=== PATIENT | female | born 1965 | race Caucasian/White ===

== ENCOUNTER 2016-09-25 13:56 | Emergency (ER) | payer OTHER ==
[~2016-09-25] VITALS: Ht 172.7 cm; Wt 63.5 kg
[~2016-09-25 13:56] MED LIST: ALBU1AER INH; FLAG500T PO; MULT-65 PO
[2016-09-25 13:58] VITALS: BP 123/74; PULSE 109; RESP 14; TEMP 98.4; O2SAT 98
[2016-09-25] MEDS ORDERED: TETANUS/DIPHTHERIA TOXOID ADULT 0.5 ML VIAL IM ONE (15:00)
--- NOTE | 2016-09-25 15:00 | PD ---
HPI Chief Complaint: Injury Time Seen by Provider: 14:58 Travel History International Travel<30 days: No Contact w/Intl Traveler<30days: No Traveled to known affect area: No History of Present Illness HPI Patient comes in complaining of right knee pain that began yesterday after she tripped over a cord and fell going straight on her right knee causing abrasion and pain on an outdoor porch. Patient reports her tetanus shot is not up-to- date. Patient denies anything for this. States pain is worse with flexion and walking. Denies any numbness or tingling. Denies hitting her head or loss of consciousness. PFSH Past Medical History Asthma: Yes Diabetes: No GERD: Yes Immune Disorder: No Respiratory: Yes (ASTHMA) Ulcer: Yes ?: Not Menopausal: Yes Social History Alcohol Use: Yes Tobacco Use: Yes Substance Use: No Allergies-Medications (Allergen,Severity, Reaction): Coded Allergies: Codeine (Verified Allergy, Intermediate, Itching, 09/25/16) *MDRO Multi-Drug Resistant Organism (Verified Adverse Reaction, Unknown, ) 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 Morphine (Verified Adverse Reaction, Unknown, ITCHING, 09/25/16) Reported Meds & Prescriptions Reported Meds & Active Scripts Active Naprosyn (Naproxen) 500 Mg Tab 500 Mg PO Q12HR PRN Review of Systems Except as stated in HPI: all other systems reviewed are Neg Physical Exam Narrative GENERAL: Well-developed, well nourished, in no acute distress, and non-ill appearing. SKIN: Warm and dry. HEAD: Atraumatic. Normocephalic. EYES: Pupils equal and round. EOMI. No scleral icterus. No injection or drainage. ENT: No nasal bleeding or discharge. Mucous membranes pink and moist. NECK: Trachea midline. Supple. No nuclear rigidity. CARDIOVASCULAR: Dorsal pulses 2+ intact bilaterally. Capillary refill less than 2 seconds. RESPIRATORY: No accessory muscle use. No respiratory distress. MUSCULOSKELETAL: No obvious deformities. No clubbing. No cyanosis. Soft tissue swelling versus small effusion noted anterior aspect right knee. Full range of motion. Knee: Negative patellar apprehension, varus and valgus maneuvers, anterior draw test, and Clarissa test. Pulses equal BL distal to injury. Capillary refill less than 2 seconds distal to injury and equal BL. FROM distal to injury and equal BL. Strength distal to injury equal BL. NV intact distal to injury. Dorsal pulses equal BL. Patient reports tenderness to palpation over anterior aspect right knee. NEUROLOGICAL: Awake and alert. No obvious cranial nerve deficits. Motor grossly within normal limits. Normal speech. PSYCHIATRIC: Appropriate mood and affect; insight and judgment normal. Data Data Last Documented VS Vital Signs Date Time Temp Pulse Resp B/P Pulse Ox O2 Delivery O2 Flow Rate FiO2 09/25/16 13:58 98.4 109 14 123/74 98 Room Air Orders Knee, Complete (4vws) (09/25/16 ) Wound Care (09/25/16 14:57) Tetanus/Diphtheria Tox Adult (Tetanus/Di (09/25/16 15:00) Ice/Cold Pack (09/25/16 14:57) Splint Or Brace Apply/Monitor (09/25/16 15:32) [facility] Medical Decision Making Medical Screen Exam Complete: Yes Emergency Medical Condition: Yes Differential Diagnosis Fracture, sprain, contusion, abrasion, laceration or other Narrative Course The patient appears to have suffered a contusion of the extremity. There is no clinical evidence to suspect bony injury by exam. Radiographic examination revealed no fracture seen at this time. The patient has full range of motion on passive motions. There is no significant edema. There is no proximal or distal joint effusion. The distal extremity appears neurovascularly intact, without evidence of neurovascular injury nor compartment syndrome. Tendon exam also was intact. The effected knee was immobilized. The patient was discharged on pain medication instructions and given warnings for vascular compromise. The patient is to follow up with their regular physician. The patient agrees with plan. The patient suffered abrasion. The abrasions are very superficial and non- repairable. There was no evidence to suggest foreign bodies. Visual and tactile exams were unremarkable. There was no evidence of neurovascular injury as well. The patients wound were cleaned and dressed. The patient was given signs and symptom warnings for infection, such as increasing pain, redness, swelling, associated heat, pus or fever. The patient was given instructions for timely follow up. The patient agreed with plan of care. Patient in no obvious distress upon re-evaluation. All pertinent Radiology result(s) discussed with patient. Patient was asked if they wanted to speak to my attending, which the patient did not wish to do at this time. Any questions/ concerns in reference to patient diagnosis/condition discussed and clarified prior to patient's discharge. Reinforced sheer importance of close follow up with patient's primary physician or primary care clinic. Instructed patient to return to ED immediately, if symptoms return/worsen. Pt showed understanding of above instructions. Further instructions and recommendations were detailed in discharge paperwork. Pt ambulated without difficulty out of ED at discharge. Diagnosis Primary Impression: Contusion of right knee Qualified Code: S80.01XA - Contusion of right knee, initial encounter Additional Impression: Abrasion Patient Instructions: Abrasion (ED), Contusion in Adults (ED), General Instructions Additional Instructions: Follow-up with your primary care physician this week for reevaluation. Take all medication as prescribed. Apply ice to affected area 20 minutes per hour for as needed for pain. Keep wound dry and clean as possible using soap and water. Use Neosporin to promote healing. Return to the emergency department if symptoms get worse. Med/Other Pt SpecificInfo: Prescription(s) given Scripts Naproxen (Naprosyn)500 Mg Roh548 Mg PO Q12HR PRN (PAIN SCALE 1 TO 10) #14 TAB Ref 0 Prov:Yulissa Casas MD 09/25/16 Disposition: 01 DISCHARGE HOME Condition: Stable Kirby Dorado Sep 25, 2016 15:00
--- NOTE | 2016-09-25 15:16 | RADRPT ---
EXAM DATE/TIME: 09/25/2016 14:31 [facility] COMPARISON: SHOULDER LEFT COMPLETE (>2VWS), January 15, 2016, 15:50. INDICATIONS : Right knee pain after fall. MEDICAL HISTORY : None. SURGICAL HISTORY : None. ENCOUNTER: Initial ACUITY: 1 day PAIN SCORE: 7/10 LOCATION: Right knee. FINDINGS: Four view examination of the right knee demonstrates no evidence of fracture or dislocation. Bony mi neralization is normal. The articular surfaces are intact. There is mild soft tissue thickening ove rlying the level of the patella consistent with edema. The suprapatellar soft tissues have a normal c onfiguration. CONCLUSION: Prepatellar soft tissue edema. No evidence of underlying osseous injury.. Sruthi Chilel MD on September 25, 2016 at 15:14 Board Certified Radiologist. This report was verified electronically.
[2016-09-25] MEDS ORDERED: NAPR500 PO (15:42)
[2017-02-22] MEDS ORDERED: TRIAM.1%T TOPICAL (12:25)
[2017-02-22] MEDS ORDERED: DIPH50IN2 IM (12:27)
[2017-02-22] MEDS ORDERED: METH125I2 IM (12:27)
== END 2016-09-25 16:21 | disposition home or self-care (01) ==
LOC: NEPB 13:56
DX: S80.01XA Contusion of right knee, initial encounter (principal); S80.211A Abrasion, right knee, initial encounter; Z87.09 Personal history of other diseases of the respiratory system; Z87.19 Personal history of other diseases of the digestive system; Z72.0 Tobacco use; Z23 Encounter for immunization; W01.0XXA Fall on same level from slipping, tripping and stumbling without subsequent striking against object, initial encounter
CPT/HCPCS: 73564; 90471; 90714; 99283; L1830

== ENCOUNTER → 2017-03-29 | Outpatient (CLI) | payer OTHER ==
[~2017-03-29] MED LIST changes: -ALBU1AER INH; -FLAG500T PO; -MULT-65 PO; +TRIAM.1%T TOPICAL
[2017-03-29 11:02] LABS: HEMATOCRIT 41.1 % (35.0-46.0); MEAN CELL VOLUME 98.1 FL (80.0-100.0); MEAN CORPUSCULAR HEMOGLOBIN 33.6 PG (27.0-34.0); MEAN CORPUSCULAR HGB CONC 34.2 % (32.0-36.0); PLATELET COUNT 103 TH/MM3 (150-450); RED BLOOD COUNT 4.19 MIL/MM3 (4.00-5.30); RED CELL DISTRIBUTION WIDTH 12.8 % (11.6-17.2); REVIEW FLAG FINAL
[2017-03-29 11:33] LABS: ALKALINE PHOSPHATASE 80 U/L (45-117); ALT (GPT) 87 U/L (10-53); ANION GAP 10 MEQ/L (5-15); AST (GOT) 204 U/L (15-37); BICARBONATE 24.8 MEQ/L (21.0-32.0); BLOOD UREA NITROGEN 4 MG/DL (7-18); CHLORIDE 103 MEQ/L (98-107); GLOMERULAR FILTRATION RATE 115 ML/MIN (>89); GLUCOSE,FASTING 76 MG/DL (74-99); HDL CHOLESTEROL 88.1 MG/DL (40.0-60.0); LDL CHOLESTEROL 114 MG/DL (0-99); POTASSIUM 4.1 MEQ/L (3.5-5.1); SODIUM (NA) 138 MEQ/L (136-145); TOTAL BILIRUBIN ADULT 0.7 MG/DL (0.2-1.0)
== END ==
LOC: CLAB 10:46
PROVIDERS: ATTEND Nurse Practitioner Family
DX: F10.10 Alcohol abuse, uncomplicated (principal)
CPT/HCPCS: 36415; 80053; 80061; 85027

== ENCOUNTER → 2017-04-09 | Outpatient (CLI) | payer OTHER | LOC: CLAB 09:25 | PROVIDERS: ATTEND Nurse Practitioner Family | DX: R74.8 Abnormal levels of other serum enzymes (principal) | CPT/HCPCS: 36415; 80074 ==

== ENCOUNTER 2017-06-12 07:42 | Emergency (ER) | payer OTHER ==
[~2017-06-12] VITALS: Ht 172.7 cm; Wt 58.0 kg
[2017-06-12 07:44] VITALS: BP 135/74; PULSE 89; RESP 15; TEMP 98.4; O2SAT 99
[2017-06-12] MEDS ORDERED: CLIN1CAP5 PO (08:01)
--- NOTE | 2017-06-12 08:01 | PD ---
HPI Chief Complaint: Skin Problem Time Seen by Provider: 07:54 (Aneesh Salinas MD) Travel History International Travel<30 days: No Contact w/Intl Traveler<30days: No Traveled to known affect area: No (Aneesh Salinas MD) History of Present Illness HPI 52-year-old white female presents to the emergency department for 2 lesions on her upper left shoulder. She says the round lesions appeared about a week ago and have become more painful and larger in size over the last week. She thinks a black spider bit her. She is concerned because her boyfriend has MRSA and does not want the wounds to become worse. She denies fever/ chills or any other complaints. (Renita Sood) PFSH Past Medical History Asthma: Yes Diabetes: No Diminished Hearing: No GERD: Yes Immune Disorder: No Respiratory: Yes (ASTHMA) Ulcer: Yes Tetanus Vaccination: < 5 Years Influenza Vaccination: No ?: Not Menopausal: Yes (Aneesh Salinas MD) Social History Alcohol Use: Yes Tobacco Use: Yes Substance Use: Yes (marijuana ) (Aneesh Salinas MD) Allergies-Medications (Allergen,Severity, Reaction): Coded Allergies: codeine (Unverified Allergy, Intermediate, Itching, 06/12/17) *MDRO Multi-Drug Resistant Organism (Verified Adverse Reaction, Unknown, ) 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 morphine (Unverified Adverse Reaction, Unknown, ITCHING, 06/12/17) Reported Meds & Prescriptions Reported Meds & Active Scripts Active Clindamycin (Clindamycin HCl) 150 Mg Cap 450 Mg PO Q8HR 10 Days Triamcinolone Topical (Triamcinolone Acetonide) 0.1 % Oint 1 Applic TOPICAL BID (Renita Sood) Review of Systems Except as stated in HPI: all other systems reviewed are Neg (Renita Sood) Physical Exam Narrative 52y white female with 2 round painful lesions on upper back. GENERAL: Well-nourished, well-developed patient. SKIN: Focused skin assessment warm/dry. Left upper posterior should with 2 round lesions approximately 1-2 cm in size. The lateral lesion is dark red with some minimal crusting and approximately 2cm of surrounding induration and erythema. The medial lesion demonstrates mild blistering of the surrounding edges and some central dried exudate with approximately 2cm of induration and erythema. Mild exploration and expression demonstrated no appreciable exudate and mild bleeding. This was cultured for evaluation. HEAD: Normocephalic. EYES: No scleral icterus. No injection or drainage. NECK: Supple, trachea midline. No JVD or lymphadenopathy. RESPIRATORY: No accessory muscle use. (Renita Sood) Data Data Last Documented VS Vital Signs Date Time Temp Pulse Resp B/P (MAP) Pulse Ox O2 Delivery O2 Flow Rate FiO2 06/12/17 08:26 98 06/12/17 07:44 98.4 89 15 (Renita Sood) Orders Orders Wound Culture And Gram Stain (06/12/17 08:01) (Renita Sood) MDM Medical Decision Making Medical Screen Exam Complete: Yes Emergency Medical Condition: Yes Differential Diagnosis Cellulitis vs insect bite vs abscess Narrative Course 52-year-old white female presents to the emergency department for 2 lesions on her upper left shoulder. She says the round lesions appeared about a week ago and have become more painful and larger in size over the last week. She thinks a black spider bit her. She is concerned because her boyfriend has MRSA and does not want the wounds to become worse. She denies fever/ chills or any other complaints. She does follow her Primary Doctor and recently followed for a routine visit and stated labs were 'good'. Advised to take all antibiotics as prescribed. Advised when to return to the ED. Keep wound clean and dry. Follow up with her PCP. (Renita Sood) Diagnosis Primary Impression: Cellulitis Qualified Codes: L03.312 - Cellulitis of back [any part except buttock] Referrals: Primary Care Physician 2 days Med/Other Pt SpecificInfo: Prescription(s) given (Aneesh Salinas MD) Scripts Clindamycin (Clindamycin) 150 Mg Cap 450 MG PO Q8HR for Infection for 10 Days, CAP 0 Refills Prov: Aneesh Salinas MD 06/12/17 Disposition: 01 DISCHARGE HOME Condition: Stable Aneesh Salinas MD Jun 12, 2017 08:01 Renita Sood Jun 12, 2017 08:34
== END 2017-06-12 08:28 | disposition home or self-care (01) ==
LOC: NEPC 07:42
DX: L03.312 Cellulitis of back [any part except buttock and flank] (principal); J45.909 Unspecified asthma, uncomplicated; K21.9 Gastro-esophageal reflux disease without esophagitis
CPT/HCPCS: 87070; 87205; 99283

== ENCOUNTER 2017-06-22 12:22 | Emergency (ER) | payer OTHER ==
[~2017-06-22] VITALS: Ht 172.7 cm; Wt 55.0 kg
[~2017-06-22 12:22] MED LIST changes: +CLIN1CAP5 PO
[2017-06-22 12:25] VITALS: BP 130/70; PULSE 95; RESP 14; TEMP 98.5; O2SAT 98
--- NOTE | 2017-06-22 12:38 | PD ---
HPI Chief Complaint: Injury Time Seen by Provider: 12:32 Travel History International Travel<30 days: No Contact w/Intl Traveler<30days: No Traveled to known affect area: No History of Present Illness HPI 52-year-old female with history of MRSA and EtOH abuse comes in with open draining wound to the lateral left distal index finger. Patient states she was here previously and given antibiotics for a wound on her right lower medial leg, but she states she couldn't afford the antibiotic at [facility]. Patient was seen on 06/15/2017. At that time the culture grew out strep. Patient states her pain is 9 out of 10 in the finger. She is allergic to codeine and morphine. PFSH Past Medical History Asthma: Yes Diabetes: No Diminished Hearing: No GERD: Yes Immune Disorder: No Respiratory: Yes (ASTHMA) Ulcer: Yes Menopausal: Yes Social History Alcohol Use: Yes Tobacco Use: Yes Substance Use: Yes (marijuana ) Allergies-Medications (Allergen,Severity, Reaction): Coded Allergies: codeine (Verified Allergy, Intermediate, Itching, 06/22/17) *MDRO Multi-Drug Resistant Organism (Verified Adverse Reaction, Unknown, 06/22/17) 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 morphine (Verified Adverse Reaction, Unknown, ITCHING, 06/22/17) Reported Meds & Prescriptions Reported Meds & Active Scripts Active Bactrim DS (Sulfamethoxazole-Trimethoprim) 800-160 Mg Tab 1 Tab PO BID Penicillin V Potassium 500 Mg Tab 500 Mg PO Q6H 10 Days Clindamycin (Clindamycin HCl) 150 Mg Cap 450 Mg PO Q8HR 10 Days Triamcinolone Topical (Triamcinolone Acetonide) 0.1 % Oint 1 Applic TOPICAL BID Review of Systems Except as stated in HPI: all other systems reviewed are Neg General / Constitutional: No: Fever Eyes: No: Visual changes HENT: No: Headaches Cardiovascular: No: Chest Pain or Discomfort Respiratory: No: Shortness of Breath Gastrointestinal: No: Abdominal Pain Genitourinary: No: Dysuria Musculoskeletal: No: Pain Skin: Positive Lesions (see history of present illness), No Rash Neurologic: No: Weakness Psychiatric: No: Depression Endocrine: No: Polydipsia Hematologic/Lymphatic: No: Easy Bruising Physical Exam Narrative GENERAL: Patient appears intoxicated and in mild distress. SKIN: Warm and dry. Patient has multiple open draining wounds consistent with MRSA/strep. Question abscess to the left distal index finger. There is no streaking. HEAD: Atraumatic. Normocephalic. EYES: Pupils equal and round. No scleral icterus. No injection or drainage. ENT: No nasal bleeding or discharge. Mucous membranes pink and moist. Pharynx is clear. Airway is patent. NECK: Trachea midline. Supple nontender without lymphadenopathy. CARDIOVASCULAR: Regular rate and rhythm. RESPIRATORY: No accessory muscle use. Clear to auscultation. Breath sounds equal bilaterally. MUSCULOSKELETAL: Extremities without clubbing, cyanosis, or edema. No obvious deformities. NEUROLOGICAL: Awake and alert. No obvious cranial nerve deficits. Motor grossly within normal limits. Five out of 5 muscle strength in the arms and legs. Normal speech. PSYCHIATRIC: Appropriate mood and affect; insight and judgment normal. Data Data Last Documented VS Vital Signs Date Time Temp Pulse Resp B/P (MAP) Pulse Ox O2 Delivery O2 Flow Rate FiO2 06/22/17 12:25 98.5 95 14 130/70 (90) 98 Orders Orders Lidocaine 1% Inj (50 Ml) (Xylocaine 1% I (06/22/17 12:45) Sulfamet-Trimeth Ds 800-160 Mg (Bactrim (06/22/17 12:45) Penicillin V Potassium (Veetids) (06/22/17 12:45) [facility] Medical Decision Making Medical Screen Exam Complete: Yes Emergency Medical Condition: Yes Differential Diagnosis Cellulitis. Strep. MRSA. Narrative Course I&D of the abscess is performed. Dressing is placed. Patient is given Bactrim DS twice a day 10 days. She was instructed she can get these for free at [facility]. Patient also given Pen-Vee K 500 mg 4 times a day for 10 days. Patient follow local primary care physician is referred to [facility]. Patient can follow up if symptoms worsen as needed. Procedures Procedure Narrative After the risks and benefits were discussed the following procedure was performed: INCISION AND DRAINAGE OF ABSCESS: The area was prepped and was sterilely draped. A digital block of 1% Xylocaine with a total number 0.5 mL was used to anesthetize the area. The area was properly anesthetized. A number 11 scalpel was used to make a 0.5-cm incision across the area of the abscess. The abscess was drained an irrigated with normal saline. Sterile dressing applied. Wound care instructions were reviewed with the patient. Diagnosis Primary Impression: Cellulitis Qualified Codes: L03.012 - Cellulitis of left finger Additional Impression: Abscess Referrals: [facility] call for appointment Patient Instructions: General Instructions Additional Instructions: Patient is given Bactrim DS twice a day 10 days. She was instructed she can get these for free at [facility]. Patient also given Pen-Vee K 500 mg 4 times a day for 10 days. Patient follow local primary care physician is referred to [facility]. Patient can follow up if symptoms worsen as needed. Med/Other Pt SpecificInfo: Prescription(s) given Scripts Sulfamethoxazole-Trimethoprim (Bactrim DS) 800-160 Mg Tab 1 TAB PO BID for Infection, #20 TAB 0 Refills Prov: Yudelka Tan MD 06/22/17 Penicillin V Potassium (Penicillin V Potassium) 500 Mg Tab 500 MG PO Q6H for Infection for 10 Days, #40 TAB 0 Refills Prov: Yudelka Tan MD 06/22/17 Disposition: 01 DISCHARGE HOME Condition: Stable Lee Ibrahim Jun 22, 2017 12:38
[2017-06-22] MEDS ORDERED: PENI500T PO (12:40)
[2017-06-22] MEDS ORDERED: BACT800T5 PO (12:40)
[2017-06-22] MEDS ORDERED: LIDOCAINE HCL 1% 50 ML VIAL INFIL ONE (12:45)
[2017-06-22] MEDS ORDERED: PENICILLIN V POTASSIUM 500 MG TAB PO ONE (12:45)
[2017-06-22] MEDS ORDERED: SULFAMETHOXAZOLE-TRIMETHOPRIM DS 800-160 MG TAB PO ONE (12:45)
== END 2017-06-22 13:18 | disposition home or self-care (01) ==
LOC: NEPK 12:22
DX: L03.012 Cellulitis of left finger (principal); J45.909 Unspecified asthma, uncomplicated; K21.9 Gastro-esophageal reflux disease without esophagitis; Z72.0 Tobacco use; Z88.5 Allergy status to narcotic agent
CPT/HCPCS: 10060

== ENCOUNTER 2017-09-14 10:20 | Inpatient (IN) | payer OTHER ==
[~2017-09-14] VITALS: Ht 172.7 cm; Wt 59.6 kg
[~2017-09-14 10:20] MED LIST changes: +BACT800T5 PO; +CLIN150C14 PO; -CLIN1CAP5 PO; +PENI500T PO
[2017-09-14 10:21] VITALS: BP 115/56; PULSE 112; RESP 20; TEMP 98; O2SAT 92
[2017-09-14] MEDS ORDERED: ALUMINUM/MAGNESIUM/SIMETH 30 ML CUP PO ONE (11:00)
[2017-09-14] MEDS ORDERED: SODIUM CHLORIDE 0.9% FLUSH 10 ML FLUSH IV FLUSH PRN (11:00)
[2017-09-14] MEDS ORDERED: LIDOCAINE VISCOUS 2% SOLN 15 ML UDC PO ONE (11:00)
[2017-09-14] MEDS ORDERED: SODIUM CHLOR 0.9% 1000 ML INJ 1,000 ML IV SCH (11:00)
[2017-09-14] MEDS ORDERED: ONDANSETRON HCL 4 MG/2 ML VIAL IVP ONE (11:00)
[2017-09-14] MEDS ORDERED: DICYCLOMINE HCL 20 MG/2 ML VIAL IM ONE (11:00)
[2017-09-14 11:30] VITALS: O2SAT 99
[2017-09-14] MEDS ORDERED: IOHEXOL 350 MG/ML 10 ML VIAL (for RAD DIAG) IVCONTRAST ONE (12:56)
[2017-09-14 13:09] LABS: AUTOMATED NEUTROPHIL # 26.3 TH/MM3 (1.8-7.7); BASOPHIL # 0.3 TH/MM3 (0-0.2); BASOPHIL % 0.9 % (0.0-2.0); HEMATOCRIT 34.5 % (35.0-46.0); HEMOGLOBIN 11.9 GM/DL (11.6-15.3); LYMPH % 3.2 % (9.0-44.0); LYMPHOCYTE # 0.9 TH/MM3 (1.0-4.8); MEAN CELL VOLUME 97.9 FL (80.0-100.0); MEAN CORPUSCULAR HEMOGLOBIN 33.7 PG (27.0-34.0); MEAN CORPUSCULAR HGB CONC 34.4 % (32.0-36.0); MEAN PLATELET VOLUME 8.8 FL (7.0-11.0); MONO % 6.7 % (0.0-8.0); NEUT % 89.2 % (16.0-70.0); PLATELET COUNT 283 TH/MM3 (150-450); RED BLOOD COUNT 3.52 MIL/MM3 (4.00-5.30); RED CELL DISTRIBUTION WIDTH 12.7 % (11.6-17.2); WHITE BLOOD COUNT 29.5 TH/MM3 (4.0-11.0)
[2017-09-14 13:13] LABS: BACTERIA, URINE MOD /hpf; BILIRUBIN, URINE NEG (NEG); BLOOD, URINE LARGE (NEG); GLUCOSE,URINE NEG (NEG); KETONE, URINE NEG (NEG); NITRITE,URINE NEG (NEG); PH, URINE 5.5 (5.0-8.5); SQUAMOUS EPITHELIAL CELL URINE 16 /hpf (0-5); URINE COLOR YELLOW (YELLW/STRAW); URINE LEUKOCYTE ESTERASE NEG (NEG)
--- NOTE | 2017-09-14 13:28 | RADRPT ---
EXAM DATE/TIME: 09/14/2017 12:53 [facility] COMPARISON: CHEST SINGLE AP, March 01, 2013, 10:22. INDICATIONS : Left abdominal pain with nausea and vomiting. IV CONTRAST: 95 cc Omnipaque 350 (iohexol) IV ORAL CONTRAST: No oral contrast ingested. RADIATION DOSE: 4.61 CTDIvol (mGy) MEDICAL HISTORY : Gerd SURGICAL HISTORY : None. ENCOUNTER: Initial ACUITY: 4 - 6 days PAIN SCALE: 6/10 LOCATION: Left flank TECHNIQUE: Volumetric scanning of the abdomen and pelvis was performed. Using automated exposure control and ad justment of the mA and/or kV according to patient size, radiation dose was kept as low as reasonably achievable to obtain optimal diagnostic quality images. DICOM format image data is available electro nically for review and comparison. FINDINGS: LOWER LUNGS: Dense airspace consolidation with air bronchograms in the left lung base. LIVER: Diffusely decreased hepatic density without intrahepatic ductal dilatation or focal mass. The gallbla dder is unremarkable by CT. SPLEEN: Normal size without lesion. PANCREAS: Within normal limits. KIDNEYS: Normal in size and shape. There is no mass, stone or hydronephrosis. ADRENAL GLANDS: Within normal limits. VASCULAR: There is no aortic aneurysm. BOWEL/MESENTERY: The stomach, small bowel, and colon demonstrate no acute abnormality. Normal appendix. There is no f ree intraperitoneal air or fluid. ABDOMINAL WALL: Within normal limits. RETROPERITONEUM: There is no lymphadenopathy. BLADDER: Largely decompressed but otherwise unremarkable. REPRODUCTIVE: Within normal limits. INGUINAL: There is no lymphadenopathy or hernia. MUSCULOSKELETAL: Degenerative changes of the lower lumbar spine most prominently at L4-5. CONCLUSION: 1. Left lung base airspace consolidation with air bronchograms. This is similar to report of 3 chest radiograph and therefore may be chronic in etiology. However, differential considerations inc lude pneumonia and aspiration in the appropriate clinical setting. 2. Otherwise, no definitive acute abnormality in the abdomen or pelvis to explain patient's symptoms. Specifically, no evidence for diverticulitis. Normal appendix. 3. Ancillary findings include hepatic steatosis and mild degenerative lumbar spondylosis. Andrzej Jalloh MD on September 14, 2017 at 13:20 Board Certified Radiologist. This report was verified electronically.
[2017-09-14 13:38] LABS: ALBUMIN 1.6 GM/DL (3.4-5.0); ALT (GPT) 22 U/L (10-53); AST (GOT) 69 U/L (15-37); BICARBONATE 27.8 MEQ/L (21.0-32.0); BLOOD UREA NITROGEN 42 MG/DL (7-18); CALCIUM 8.5 MG/DL (8.5-10.1); CHLORIDE 88 MEQ/L (98-107); CREATININE 1.11 MG/DL (0.50-1.00); GLOMERULAR FILTRATION RATE 52 ML/MIN (>89); GLUCOSE,RANDOM 92 MG/DL (74-106); LIPASE 235 U/L (73-393); SODIUM (NA) 127 MEQ/L (136-145)
[2017-09-14 13:40] LABS: ALKALINE PHOSPHATASE 120 U/L (45-117); TOTAL BILIRUBIN ADULT 1.1 MG/DL (0.2-1.0)
--- NOTE | 2017-09-14 13:44 | PD ---
HPI Chief Complaint: GI Complaint Time Seen by Provider: 11:00 Travel History International Travel<30 days: No Contact w/Intl Traveler<30days: No Traveled to known affect area: No History of Present Illness HPI The patient's 52 years old. She complains of vomiting and incontinence of urine and stool for 5 days. She denies fever. She reports a history of rib fractures on the left side making it difficult to breathe at times. She has seen no blood in the urine or the stool. She denies history of renal stones. Pain can be severe at times. Pain slightly worse with palpation. Pt reports diarrhea with some incontinence reported. No sensory loss in perianal/perineal distribution. PFSH Past Medical History Asthma: Yes Diabetes: No Diminished Hearing: No GERD: Yes Immune Disorder: No Respiratory: Yes (ASTHMA) Ulcer: Yes Tetanus Vaccination: < 5 Years Influenza Vaccination: No ?: Not Menopausal: Yes Social History Alcohol Use: Yes (couple beers a day) Tobacco Use: Yes (1/2 PPD) Substance Use: Yes (marijuana ) Allergies-Medications (Allergen,Severity, Reaction): Coded Allergies: codeine (Verified Allergy, Intermediate, Itching, 06/22/17) *MDRO Multi-Drug Resistant Organism (Verified Adverse Reaction, Unknown, 06/22/17) 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 morphine (Verified Adverse Reaction, Unknown, ITCHING, 06/22/17) Reported Meds & Prescriptions Reported Meds & Active Scripts Active Bactrim DS (Sulfamethoxazole-Trimethoprim) 800-160 Mg Tab 1 Tab PO BID Penicillin V Potassium 500 Mg Tab 500 Mg PO Q6H 10 Days Clindamycin (Clindamycin HCl) 150 Mg Cap 450 Mg PO Q8HR 10 Days Triamcinolone Topical (Triamcinolone Acetonide) 0.1 % Oint 1 Applic TOPICAL BID Review of Systems Except as stated in HPI: all other systems reviewed are Neg General / Constitutional: No: Fever Physical Exam Narrative GENERAL: 52-year-old female pleasant, fairly thin, BMI 18 SKIN: Warm and dry. HEAD: Atraumatic. Normocephalic. EYES: Pupils equal and round. No scleral icterus. No injection or drainage. ENT: No nasal bleeding or discharge. Mucous membranes pink and moist. NECK: Trachea midline. No JVD. CARDIOVASCULAR: Regular rate and rhythm. RESPIRATORY: There is about 100. Rhythm is regular. GASTROINTESTINAL: TTP palpation left abdomen. Left flank tenderness is present. MUSCULOSKELETAL: Extremities without clubbing, cyanosis, or edema. No obvious deformities. NEUROLOGICAL: Awake and alert. No obvious cranial nerve deficits. Motor grossly within normal limits. Five out of 5 muscle strength in the arms and legs. Normal speech. PSYCHIATRIC: Appropriate mood and affect; insight and judgment normal. Data Data Last Documented VS Vital Signs Date Time Temp Pulse Resp B/P (MAP) Pulse Ox O2 Delivery O2 Flow Rate FiO2 09/14/17 11:30 99 Room Air 09/14/17 10:32 18 09/14/17 10:21 98.0 112 Vital Signs Date Time Temp Pulse Resp B/P (MAP) Pulse Ox O2 Delivery O2 Flow Rate FiO2 09/14/17 11:30 99 Room Air 09/14/17 10:32 18 09/14/17 10:21 98.0 112 20 115/56 (75) 92 Room Air Orders Orders Complete Blood Count With Diff (09/14/17 11:00) Comprehensive Metabolic Panel (09/14/17 11:00) Lipase (09/14/17 11:00) Urinalysis - C+S If Indicated (09/14/17 11:00) Ct Abd/Pel W Iv Contrast(Rout) (09/14/17 11:00) Iv Access Insert/Monitor (09/14/17 11:00) Ecg Monitoring (09/14/17 11:00) Oximetry (09/14/17 11:00) Ondansetron Inj (Zofran Inj) (09/14/17 11:00) Sodium Chlor 0.9% 1000 Ml Inj (Ns 1000 M (09/14/17 11:00) Sodium Chloride 0.9% Flush (Ns Flush) (09/14/17 11:00) Dicyclomine Inj (Bentyl Inj) (09/14/17 11:00) Al-Mag Hy-Si 40-40-4 Mg/Ml Liq (Mag-Al P (09/14/17 11:00) Lidocaine 2% Viscous (Xylocaine 2% Visco (09/14/17 11:00) Iohexol 350 Inj (Omnipaque 350 Inj) (09/14/17 12:56) Urine Culture (09/14/17 12:20) Piperacil-Tazo 3.375 Gm Premix (Zosyn 3. (09/14/17 14:00) Labs Laboratory Tests Test 09/14/17 12:20 White Blood Count 29.5 TH/MM3 Red Blood Count 3.52 MIL/MM3 Hemoglobin 11.9 GM/DL Hematocrit 34.5 % Mean Corpuscular Volume 97.9 FL Mean Corpuscular Hemoglobin 33.7 PG Mean Corpuscular Hemoglobin Concent 34.4 % Red Cell Distribution Width 12.7 % Platelet Count 283 TH/MM3 Mean Platelet Volume 8.8 FL Neutrophils (%) (Auto) 89.2 % Lymphocytes (%) (Auto) 3.2 % Monocytes (%) (Auto) 6.7 % Eosinophils (%) (Auto) 0.0 % Basophils (%) (Auto) 0.9 % Neutrophils # (Auto) 26.3 TH/MM3 Lymphocytes # (Auto) 0.9 TH/MM3 Monocytes # (Auto) 2.0 TH/MM3 Eosinophils # (Auto) 0.0 TH/MM3 Basophils # (Auto) 0.3 TH/MM3 CBC Comment DIFF FINAL Differential Comment Urine Color YELLOW Urine Turbidity HAZY Urine pH 5.5 Urine Specific [place] 1.013 Urine Protein 30 mg/dL Urine Glucose (UA) NEG mg/dL Urine Ketones NEG mg/dL Urine Occult Blood LARGE Urine Nitrite NEG Urine Bilirubin NEG Urine Urobilinogen 2.0 MG/DL Urine Leukocyte Esterase NEG Urine RBC 33 /hpf Urine WBC 9 /hpf Urine Squamous Epithelial Cells 16 /hpf Urine Bacteria MOD /hpf Urine Yeast (Budding) FEW Microscopic Urinalysis Comment CULTURE INDICATED Blood Urea Nitrogen 42 MG/DL Creatinine 1.11 MG/DL Random Glucose 92 MG/DL Total Protein 8.0 GM/DL Albumin 1.6 GM/DL Calcium Level 8.5 MG/DL Alkaline Phosphatase 120 U/L Aspartate Amino Transf (AST/SGOT) 69 U/L Alanine Aminotransferase (ALT/SGPT) 22 U/L Total Bilirubin 1.1 MG/DL Sodium Level 127 MEQ/L Potassium Level 3.0 MEQ/L Chloride Level 88 MEQ/L Carbon Dioxide Level 27.8 MEQ/L Anion Gap 11 MEQ/L Estimat Glomerular Filtration Rate 52 ML/MIN Lipase 235 U/L MDM Medical Decision Making Medical Screen Exam Complete: Yes Emergency Medical Condition: Yes Medical Record Reviewed: Yes Differential Diagnosis Colitis, diverticulitis, renal stone Narrative Course CBC & BMP Diagram 09/14/17 12:20 Total Protein 8.0, Albumin 1.6 L, Calcium Level 8.5, Alkaline Phosphatase 120 H , Aspartate Amino Transf (AST/SGOT) 69 H, Alanine Aminotransferase (ALT/SGPT) 22 , Total Bilirubin 1.1 H Last Impressions Abdomen/Pelvis CT 09/14/17 1100 Signed Impressions: Service Date/Time: Thursday, September 14, 2017 12:53 - CONCLUSION: 1. Left lung base airspace consolidation with air bronchograms. This is similar to report of 03/01/2013 chest radiograph and therefore may be chronic in etiology. However, differential considerations include pneumonia and aspiration in the appropriate clinical setting. 2. Otherwise, no definitive acute abnormality in the abdomen or pelvis to explain patient's symptoms. Specifically, no evidence for diverticulitis. Normal appendix. 3. Ancillary findings include hepatic steatosis and mild degenerative lumbar spondylosis. Andrzej Jalloh MD Blood cultures drawn Zosyn started D/w Dr Flowers for [facility] Sepsis Criteria SIRS Criteria (2 or more): Heart rate over 90, WBC > 72945, < 4000 or > 10% bands Sepsis Criteria (SIRS+source): Infect source susp/known Diagnosis Primary Impression: PNA (pneumonia) Qualified Codes: J18.1 - Lobar pneumonia, unspecified organism Additional Impression: Prerenal renal failure Admitting Information Admitting Physician Requests: Admit Aneesh Salinas MD Sep 14, 2017 13:44
[2017-09-14] MEDS ORDERED: PIPERACIL-TAZO 3.375 GM PREMIX 50 ML IV ONE (14:00)
[2017-09-14] MEDS ORDERED: POTASSIUM CHLORIDE 10 MEQ CONTROLLED RELEASE TAB PO ONE (15:00)
--- NOTE | 2017-09-14 15:56 | RADRPT ---
EXAM DATE/TIME: 09/14/2017 15:40 [facility] COMPARISON: No previous studies available for comparison. INDICATIONS : Left sided chest pain for two weeks. MEDICAL HISTORY : Gastroesophageal reflux disease. Asthma. SURGICAL HISTORY : None. ENCOUNTER: Initial ACUITY: 2 weeks PAIN SCORE: 8/10 LOCATION: Left chest FINDINGS: Diffuse airspace disease is identified throughout the left lower lobe. Lungs are hyperinflated. Heart and mediastinal structures are unremarkable. CONCLUSION: Left lower lobe infiltrate most characteristic of pneumonitis. Mor Page MD on September 14, 2017 at 15:52 Board Certified Radiologist. This report was verified electronically.
[2017-09-14] MEDS: SODIUM CHLOR 0.9% 1000 ML INJ 1,000 ML IV SCH (17:07)
--- NOTE | 2017-09-14 17:54 | HHI.HP ---
[facility] No Primary Care Physician Admission Diagnosis PNA; Diarrhea Diagnoses: Chief Complaint: shortness of breath Travel History International Travel<30 Days: No Contact w/Intl Traveler <30 Da: No Traveled to Known Affected Are: No History of Present Illness 52-year-old white female being admitted for sepsis secondary to possible pneumonia and urinary tract infection. Patient was in her usual state of health until about 4-5 days ago when she developed a gradual onset of shortness of breath. This was followed by coughing and posttussive emesis. the patient said that her shortness of breath would worsen when she would lie down. This was also followed by some diffuse abdominal cramping pain and diarrhea as well as urinary urgency and incontinence. Patient denies any dysuria or any gross hematuria. She denies any bloody bowel movements. Patient states she's had a poor appetite and has been unable to eat, when she tries to she gets nauseated and vomits. She also says she's only been able to drink 1 beer in the last 6 days whereas she normally drinks every day. She also says she's cut down on her smoking for the past 4-5 days due to the symptoms. She denies any past history of kidney stones; does report smoking for at least 30 years and drinking a lot as well. She has a chart history of marijuana use. When asked if there is anyone with similar symptoms, the patient states that her girlfriend once had C. difficile. Review of Systems Except as stated in HPI: all other systems reviewed are Neg Past Family Social History Past Medical History Asthma Past Surgical History None per patient Allergies: Coded Allergies: codeine (Verified Allergy, Intermediate, Itching, 06/22/17) *MDRO Multi-Drug Resistant Organism (Verified Adverse Reaction, Unknown, 06/22/17) 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 morphine (Verified Adverse Reaction, Unknown, ITCHING, 06/22/17) Family History Father had some sort of stomach tumor in his 40s Mother with thyroid disease Social History Smokes actively, drinks actively, chart a history of marijuana use. Does not work lives with her boyfriend Physical Exam Vital Signs Vital Signs Date Time Temp Pulse Resp B/P (MAP) Pulse Ox O2 Delivery O2 Flow Rate FiO2 09/14/17 16:45 09/14/17 11:30 99 Room Air 09/14/17 10:32 18 09/14/17 10:21 98.0 112 20 115/56 (75) 92 Room Air Physical Exam VS: afebrile GENERAL: Thin white female, lying in bed, no acute distress SKIN: Warm and dry. EYES: No scleral icterus. No injection or drainage. ENT: No nasal bleeding or discharge. Mucous membranes pink and moist. CARDIOVASCULAR: Regular rate and rhythm. no murmurs RESPIRATORY: No accessory muscle use. Clear to auscultation. Breath sounds equal bilaterally. GASTROINTESTINAL: Abdomen soft, mild diffuse tenderness to palpation over the left upper and lower quadrants and epigastrium, less on the right; nondistended abdomen overall Extremities: No clubbing, cyanosis, or edema. No obvious deformities. MUSCULOSKELETAL: grossly intact ROM with 4 out of 5 proximal muscle strength in all 4 extremities with decreased muscle bulk and tone for age and habitus NEUROLOGICAL: Awake and alert. No obvious cranial nerve deficits. No facial droop nor slurred speech noted. PSYCHIATRIC: Appropriate mood and affect; insight and judgment normal. Laboratory Laboratory Tests Test 09/14/17 12:20 09/14/17 16:24 White Blood Count 29.5 Red Blood Count 3.52 Hemoglobin 11.9 Hematocrit 34.5 Mean Corpuscular Volume 97.9 Mean Corpuscular Hemoglobin 33.7 Mean Corpuscular Hemoglobin Concent 34.4 Red Cell Distribution Width 12.7 Platelet Count 283 Mean Platelet Volume 8.8 Neutrophils (%) (Auto) 89.2 Lymphocytes (%) (Auto) 3.2 Monocytes (%) (Auto) 6.7 Eosinophils (%) (Auto) 0.0 Basophils (%) (Auto) 0.9 Neutrophils # (Auto) 26.3 Lymphocytes # (Auto) 0.9 Monocytes # (Auto) 2.0 Eosinophils # (Auto) 0.0 Basophils # (Auto) 0.3 CBC Comment DIFF FINAL Differential Comment Urine Color YELLOW Urine Turbidity HAZY Urine pH 5.5 Urine Specific [place] 1.013 Urine Protein 30 Urine Glucose (UA) NEG Urine Ketones NEG Urine Occult Blood LARGE Urine Nitrite NEG Urine Bilirubin NEG Urine Urobilinogen 2.0 Urine Leukocyte Esterase NEG Urine RBC 33 Urine WBC 9 Urine Squamous Epithelial Cells 16 Urine Bacteria MOD Urine Yeast (Budding) FEW Microscopic Urinalysis Comment CULTURE INDICATED Blood Urea Nitrogen 42 Creatinine 1.11 Random Glucose 92 Total Protein 8.0 Albumin 1.6 Calcium Level 8.5 Alkaline Phosphatase 120 Aspartate Amino Transf (AST/SGOT) 69 Alanine Aminotransferase (ALT/SGPT) 22 Total Bilirubin 1.1 Sodium Level 127 Potassium Level 3.0 Chloride Level 88 Carbon Dioxide Level 27.8 Anion Gap 11 Estimat Glomerular Filtration Rate 52 Lipase 235 Lactic Acid Level 1.3 Magnesium Level 1.6 Ethyl Alcohol Level LESS THAN 3 Date/Time Source Procedure Growth Status 09/14/17 16:24 Blood Peripheral Aerobic Blood Culture Pending Received 09/14/17 16:24 Blood Peripheral Anaerobic Blood Culture Pending Received 09/14/17 12:20 Urine Clean Catch Urine Culture Pending Received Result Diagram: 09/14/17 1220 09/14/17 1220 Imaging Last Impressions Abdomen/Pelvis CT 09/14/17 1100 Signed Impressions: Service Date/Time: Thursday, September 14, 2017 12:53 - CONCLUSION: 1. Left lung base airspace consolidation with air bronchograms. This is similar to report of 03/01/2013 chest radiograph and therefore may be chronic in etiology. However, differential considerations include pneumonia and aspiration in the appropriate clinical setting. 2. Otherwise, no definitive acute abnormality in the abdomen or pelvis to explain patient's symptoms. Specifically, no evidence for diverticulitis. Normal appendix. 3. Ancillary findings include hepatic steatosis and mild degenerative lumbar spondylosis. Andrzej Jalloh MD Chest X-Ray 09/14/17 0000 Signed Impressions: Service Date/Time: Thursday, September 14, 2017 15:40 - CONCLUSION: Left lower lobe infiltrate most characteristic of pneumonitis. Mor Page MD Caprini VTE Risk Assessment Caprini VTE Risk Assessment: Mod/High Risk (score >= 2) Caprini Risk Assessment Model Point Value = 1 Point Value = 2 Point Value = 3 Point Value = 5 Age 41-60 Minor surgery BMI > 25 kg/m2 Swollen legs Varicose veins or History of unexplained or recurrent spontaneous Oral contraceptives or hormone replacement Sepsis (< 1 month) Serious lung disease, including pneumonia (< 1 month) Abnormal pulmonary function Acute myocardial infarction Congestive heart failure (< 1 month) History of inflammatory bowel disease Medical patient at bed rest Age 61-74 Arthroscopic surgery Major open surgery (> 45 min) Laparoscopic surgery (> 45 min) Malignancy Confined to bed (> 72 hours) Immobilizing plaster cast Central venous access Age >= 75 History of VTE Family history of VTE Factor V Leiden Prothrombin [id number] Lupus anticoagulant Anticardiolipin antibodies Elevated serum homocysteine Heparin-induced thrombocytopenia Other congenital or acquired thrombophilia Stroke (< 1 month) Elective arthroplasty Hip, pelvis, or leg fracture Acute spinal cord injury (< 1 month) Prophylaxis Regimen Total Risk Factor Score Risk Level Prophylaxis Regimen 0-1 Low Early ambulation 2 Moderate Order ONE of the following: *Sequential Compression Device (SCD) *Heparin 5000 units SQ BID 3-4 Higher Order ONE of the following medications: *Heparin 5000 units SQ TID *Enoxaparin/Lovenox 40 mg SQ daily (WT < 150 kg, CrCl > 30 mL/min) *Enoxaparin/Lovenox 30 mg SQ daily (WT < 150 kg, CrCl > 10-29 mL/min) *Enoxaparin/Lovenox 30 mg SQ BID (WT < 150 kg, CrCl > 30 mL/min) AND/OR *Sequential Compression Device (SCD) 5 or more Highest Order ONE of the following medications: *Heparin 5000 units SQ TID (Preferred with Epidurals) *Enoxaparin/Lovenox 40 mg SQ daily (WT < 150 kg, CrCl > 30 mL/min) *Enoxaparin/Lovenox 30 mg SQ daily (WT < 150 kg, CrCl > 10-29 mL/min) *Enoxaparin/Lovenox 30 mg SQ BID (WT < 150 kg, CrCl > 30 mL/min) AND *Sequential Compression Device (SCD) Assessment and Plan Assessment and Plan Possible sepsis - White count at 29k and tachycardia. f//u urine and blood cultures. CXR ordered. I notice an infiltrate in the left lower lobe that I independently reviewed on the CT scan of the abdomen - given 1L NS bolus; would like to give more but given hyponatremia will reassess daily before administering further boluses - abx as below - cbc and lactic acid protocol - low rate MIVFs Shortness of breath - Possible pneumonia left lower lobe - given zosyn in ER; will cover with Zithromax and ceftriaxone to cover for CAP ; if no improvement will switch over to zosyn to cover for aspiration - ordering pneumonia antigens and sputum culture and Gram stain chest pain - essentially chest wall pain; pain control abd pain - ? from vomiting MSK strain vs diarrhea - obtaining c. diff pcr - We'll obtain a gallbladder ultrasound given mildly elevated LFTs and bilirubin ; I independently reviewed the CT scan which does not demonstrate severe constipation but rather some gas accumulation - cmp in am n/v - Possibly secondary to abdominal pain, cholecystitis, residual cyclical vomiting syndrome from marijuana use - Zofran and treat as above hematuria - UTI? vs stones? vs cancer? - We'll follow-up urine culture, cover with antibiotics - Will obtain repeat cath specimen in 24-36 hours to ensure this is resolved; - CT abdomen was unfortunately done with IV contrast even though original provider was looking for kidney stone. We'll obtain stat KUB - clinically pt does not appear to have active symptoms of obstructive nephrolithiasis Hyponatremia - Suspect secondary to beer potomania - Trend daily and correct judiciously with fluids and or fluid restriction based upon sepsis status hypokalemia - likely 2/2 N/V - replacing orally and IV ETOH use - scheduled ativan taper given mild hepatic insufficiency SCDs given hematuria Physician Certification 2 Midnight Certification Type: Admission for Inpatient Services Order for Inpatient Services The services are ordered in accordance with Medicare regulations or non- Medicare payer requirements, as applicable. In the case of services not specified as inpatient-only, they are appropriately provided as inpatient services in accordance with the 2-midnight benchmark. Estimated LOS (days): 2 2 days is the estimated time the patient will need to remain in the hospital, assuming treatment plan goals are met and no additional complications. Post-Hospital Plan: Home Felix Irizarry MD Sep 14, 2017 17:54
[2017-09-14 17:55] VITALS: PULSE 77
--- NOTE | 2017-09-14 18:01 | RADRPT ---
EXAM DATE/TIME: 09/14/2017 17:42 [facility] COMPARISON: CT ABDOMEN & PELVIS W CONTRAST, September 14, 2017, 12:53. INDICATIONS : Left sided abdominal pain, evaluate for kidney stones MEDICAL HISTORY : GERD SURGICAL HISTORY : None. ENCOUNTER: Initial ACUITY: 1 day PAIN SCORE: 5/10 LOCATION: Left abdomen FINDINGS: Supine view of the abdomen was performed. The abdominal bowel gas pattern is normal. No definite abn ormal calcifications corresponding to the kidneys or expected course of the ureters. Osseous structur es are intact. CONCLUSION: 1. No definite radiopaque renal calculi. 2. Nonobstructive bowel gas pattern. Andrzej Jalloh MD on September 14, 2017 at 17:56 Board Certified Radiologist. This report was verified electronically.
[2017-09-14] MEDS ORDERED: ONDANSETRON HCL 4 MG/2 ML VIAL IV PUSH PRN (18:15)
--- NOTE | 2017-09-14 18:41 | RADRPT ---
EXAM DATE/TIME: 09/14/2017 18:07 [facility] COMPARISON: No previous studies available for comparison. INDICATIONS : Nausea/vomiting. MEDICAL HISTORY : Gastroesophageal reflux disease. Asthma. Ulcer. MRSA. Eczema. Collar bone fracture. SURGICAL HISTORY : None. ENCOUNTER: Initial ACUITY: 1 day PAIN SCORE: 6/10 LOCATION: Right upper quadrant MEASUREMENTS: LIVER: 18.2 cm length COMMON DUCT: 5 mm RIGHT KIDNEY: 12.5 x 5.1 x 4.8 cm FINDINGS: LIVER: Liver is prominent measuring up to 18.2 cm with diffuse increased echogenicity. There is no focal mas s or ductal dilatation. There is no evidence of ascites. There is normal hepatopedal blood flow in th e portal vein. COMMON DUCT: No intraluminal mass or stone visualized. GALLBLADDER: Contains no stones, demonstrates no wall thickening or pericholecystic fluid. PANCREAS: The visualized portions are within normal limits. RIGHT KIDNEY: No evidence of hydronephrosis, stone, or mass. CONCLUSION: 1. Prominent liver with findings characteristic of hepatic steatosis. 2. Unremarkable gallbladder with no evidence of cholelithiasis. Kenny Menard MD on September 14, 2017 at 18:38 Board Certified Radiologist. This report was verified electronically.
[2017-09-14] MEDS ORDERED: LIDOCAINE HCL 5% PATCH T-DERMAL PRN (18:45)
[2017-09-14] MEDS ORDERED: REMOVE OLD PATCH T-DERMAL PRN (18:45)
[2017-09-14] MEDS: cefTRIAXone INJ 1,000 MG in SODIUM CHLORIDE 0.9% INJ 100 ML IV SCH (19:25)
[2017-09-14] MEDS: PANTOPRAZOLE SOD 40 MG DELAYED RELEASE TAB PO SCH (19:25)
[2017-09-14 20:00] VITALS: BP 101/54; PULSE 79; RESP 16; TEMP 95.9; O2SAT 96
[2017-09-14] MEDS: LORazepam 2 MG TAB PO SCH (20:29)
[2017-09-14] MEDS: AZITHROMYCIN INJ 500 MG in SODIUM CHLOR 0.9% 250 ML INJ 250 ML IV SCH (20:34)
[2017-09-15] VITALS (7 sets, daily range): BP systolic 101–126; BP diastolic 58–70; PULSE 72–85; RESP 16–18; TEMP 95.9–98.6; O2SAT 92–98
[2017-09-15] MEDS: LORazepam 2 MG TAB PO SCH ×2 (01:19→08:00)
[2017-09-15] MEDS: PANTOPRAZOLE SOD 40 MG DELAYED RELEASE TAB PO SCH (08:00)
[2017-09-15 09:11] LABS: ALBUMIN 1.2 GM/DL (3.4-5.0); ALT (GPT) 20 U/L (10-53); AST (GOT) 66 U/L (15-37); BICARBONATE 25.2 MEQ/L (21.0-32.0); BLOOD UREA NITROGEN 43 MG/DL (7-18); CALCIUM 7.9 MG/DL (8.5-10.1); CHLORIDE 100 MEQ/L (98-107); CREATININE 1.05 MG/DL (0.50-1.00); GLOMERULAR FILTRATION RATE 55 ML/MIN (>89); GLUCOSE,RANDOM 95 MG/DL (74-106); SODIUM (NA) 135 MEQ/L (136-145)
[2017-09-15 09:29] LABS: ALKALINE PHOSPHATASE 75 U/L (45-117); TOTAL BILIRUBIN ADULT 0.6 MG/DL (0.2-1.0); TOTAL PROTEIN 6.6 GM/DL (6.4-8.2)
[2017-09-15 09:36] LABS: AUTOMATED NEUTROPHIL # 7.9 TH/MM3 (1.8-7.7); BASOPHIL % 0.3 % (0.0-2.0); EOSINOPHIL % 0.2 % (0.0-4.0); HEMATOCRIT 32.5 % (35.0-46.0); HEMOGLOBIN 11.2 GM/DL (11.6-15.3); LYMPH % 13.7 % (9.0-44.0); LYMPHOCYTE # 1.5 TH/MM3 (1.0-4.8); MEAN CELL VOLUME 97.9 FL (80.0-100.0); MEAN CORPUSCULAR HEMOGLOBIN 33.6 PG (27.0-34.0); MEAN CORPUSCULAR HGB CONC 34.4 % (32.0-36.0); MEAN PLATELET VOLUME 8.4 FL (7.0-11.0); MONO % 11.4 % (0.0-8.0); MONOCYTE # 1.2 TH/MM3 (0-0.9); NEUT % 74.4 % (16.0-70.0); PLATELET COUNT 292 TH/MM3 (150-450); RED BLOOD COUNT 3.32 MIL/MM3 (4.00-5.30); RED CELL DISTRIBUTION WIDTH 12.7 % (11.6-17.2); WHITE BLOOD COUNT 10.6 TH/MM3 (4.0-11.0)
[2017-09-15] MEDS ORDERED: PNEUMOCOCCAL POLYVALENT INJ 25 MCG/0.5 ML SYR IM ONE (10:00)
[2017-09-15] MEDS ORDERED: INFLUENZA VIRUS VACCINE (QUADRIVALENT) 0.5 ML SYR IM ONE (10:00)
--- NOTE | 2017-09-15 10:15 | HHI.PR ---
Subjective Remarks f/u for abdominal pain, diarrhea and SOB with exertion she stated she continues to be symptomatic. Not sure if she is better. Denied any N/V. Patient.patient denies any urinary symptoms. She denies any hematuria. remains afebrile. Objective Vitals Vital Signs Date Time Temp Pulse Resp B/P (MAP) Pulse Ox O2 Delivery O2 Flow Rate FiO2 09/15/17 08:00 96.9 85 16 103/62 (76) 92 09/15/17 04:00 98.6 74 16 112/67 (82) 97 09/15/17 00:00 95.9 72 16 101/60 (74) 98 09/14/17 21:32 18 09/14/17 20:00 95.9 79 16 101/54 (70) 96 09/14/17 20:00 79 09/14/17 17:55 77 09/14/17 16:45 09/14/17 11:30 99 Room Air 09/14/17 10:32 18 09/14/17 10:21 98.0 112 20 115/56 (75) 92 Room Air I/O 09/14/17 09/14/17 09/14/17 09/15/17 09/15/17 09/15/17 07:00 15:00 23:00 07:00 15:00 23:00 Intake Total 1000 ml 480 ml Balance 1000 ml 480 ml Intake Oral 480 ml IV Total 1000 ml # Voids 2 2 # Bowel Movements 2 Result Diagram: 09/15/17 0930 09/15/17 0807 Objective Remarks GENERAL:in NAD but disheveled. NECK: Supple, trachea midline. No JVD or lymphadenopathy. CARDIOVASCULAR: Regular rate and rhythm without murmurs, gallops, or rubs. RESPIRATORY: Breath sounds equal bilaterally. No accessory muscle use. GASTROINTESTINAL: Abdomen soft, mild TTP in the lower abdomen, nondistended. MUSCULOSKELETAL: No cyanosis, or edema. BACK: Nontender without obvious deformity. No CVA tenderness. Medications and IVs Current Medications Ondansetron HCl (Zofran Inj) 4 mg ONCE ONCE IVP Last administered on t 13:14; Start 09/14/17 at 11:00; Stop 09/14/17 at 11:02; Status DC Sodium Chloride 1,000 ml @ 1,000 mls/hr Q1H IV Last administered on 13:14; Start 09/14/17 at 11:00; Stop 09/14/17 at 11:59; Status DC Sodium Chloride (NS Flush) 2 ml UNSCH PRN IV FLUSH FLUSH AFTER USING IV ACCESS ; Start 09/14/17 at 11:00 Dicyclomine HCl (Bentyl Inj) 20 mg ONCE ONCE IM Last administered on 13:14; Start 09/14/17 at 11:00; Stop 09/14/17 at 11:02; Status DC Al Hydrox/Mg Hydrox/Simethicone (Mag-Al Plus Susp Liq) 30 ml ONCE ONCE PO Last administered on 09/14/17 13:14; Start 09/14/17 at 11:00; Stop 09/14/17 at 11:02; Status DC Lidocaine HCl (Xylocaine 2% Viscous) 15 ml ONCE ONCE PO Last administered on 09/14/17 13:14; Start 09/14/17 at 11:00; Stop 09/14/17 at 11:02; Status DC Iohexol (Omnipaque 350 Inj) 95 ml STK-MED ONCE IVCONTRAST Last administered on 09/14/17 12:56; Start 09/14/17 at 12:56; Stop 09/14/17 at 12:58; Status DC Piperacillin Sod/ Tazobactam Sod 50 ml @ 100 mls/hr ONCE ONCE IV Last administered on 09/14/17 14:40; Start 09/14/17 at 14:00; Stop 09/14/17 at 14 :29; Status DC Sodium Chloride 1,000 ml @ 42 mls/hr [id number] IV Last administered on 17:07; Start 09/14/17 at 15:00 Potassium Chloride (KCl) 30 meq ONCE ONCE PO Last administered on 09/14/17 17:06; Start 09/14/17 at 15:00; Stop 09/14/17 at 15:01; Status DC Ceftriaxone Sodium 1000 mg/ Sodium Chloride 100 ml @ 200 mls/hr Q24H IV Last administered on 09/14/17 19:25; Start 09/14/17 at 18:00 Azithromycin 500 mg/Sodium Chloride 250 ml @ 250 mls/hr Q24H IV Last administered on 09/14/17 20:34; Start 09/14/17 at 18:00 Ondansetron HCl (Zofran Inj) 4 mg Q6H PRN IV PUSH nausea/vomiting; Start 09/14 at 18:15 Pantoprazole Sodium (Protonix) 40 mg DAILY PO Last administered on 09/15/17 08:00; Start 09/14/17 at 18:15 Lorazepam (Ativan) 2 mg Q6H PO Last administered on 09/15/17 01:19; Start at 20:00; Stop 09/15/17 at 14:01 Lorazepam (Ativan) 2 mg Q8HR PO ; Start 09/15/17 at 22:00; Stop 09/16/17 at 14 :01 Lorazepam (Ativan) 2 mg BID PO ; Start 09/17/17 at 09:00; Stop 09/17/17 at 21:01 Lorazepam (Ativan) 2 mg DAILY PO ; Start 09/18/17 at 09:00 Oxycodone HCl (Roxicodone) 5 mg Q6H PRN PO PAIN 1-10 Last administered on 09/14 20:32; Start 09/14/17 at 18:45; Stop 09/15/17 at 10:08; Status DC Lidocaine HCl (Lidoderm 5% Patch.12 Hr) 1 patch DAILY PRN T-DERMAL CHEST WALL PAIN; Start 09/14/17 at 18:45 Miscellaneous Information 1 HS PRN T-DERMAL LIDODERM PATCH; Start 09/14/17 at 18:45 Pneumococcal Polyvalent Vaccine (Pneumovax-23 Inj) 25 mcg ONCE ONCE IM ; Start 09/15/17 at 10:00; Stop 09/15/17 at 10:01; Status DC Influenza Virus Vaccine (Flu (Quadrivalent) Vaccine Inj) 0.5 ml ONCE ONCE IM ; Start 09/15/17 at 10:00; Stop 09/15/17 at 10:01; Status DC Acetaminophen (Tylenol) 500 mg Q4H PRN PO pain 1-10; Start 09/15/17 at 10:15; Status UNV A/P Assessment and Plan Possible sepsis - White count at 29k and tachycardia. f//u urine and blood cultures. -Latic acid 1.3. -today WBC is 10.6 K normal. -maybe secondary to dehydration. Shortness of breath with exertion with exertion - Chest x-ray showed left lower lobe infiltrate suggesting pneumonitis. This has been seen on prior imaging. -Currently on Rocephin and azithromycin. abd pain - CT scan of the abdomen and pelvis negative for any abdominal etiology. Abdominal ultrasound shows fatty liver disease. On abdominal exam location one suprapubic area. UA is positive. -Symptoms may be secondary to UTI. Patient on Rocephin pending cultures. -Pending C. difficile toxin PCR. Will also get stool cultures and check for parasites. UTI -See treatment as above. Hyponatremia - Suspect secondary to beer potomania - Resolved. Sodium 135 today. hypokalemia - Replenish as needed. ETOH use -Will place on CIWA protocol. DVT prophylaxis SCDs. Discharge Planning If patient continues to clinically improve can be discharge in 1-2 days. Siobhan Palumbo MD Sep 15, 2017 10:15
[2017-09-15 10:23] LABS: BANDS 3 % (0-6); BLASTS 1 % (0-0); LYMPHOCYTES 17 % (9-44); MONOCYTES 14 % (0-8); NEUTROPHIL # MANUAL DIFF 7.1 TH/MM3 (1.8-7.7); POLYS (SEG NEUTROPHILS) 64 % (16-70); TOXIC GRANULATION 1+ (NORMAL); TOXIC VACUOLATION PRESENT (NONE SEEN)
[2017-09-15] MEDS ORDERED: LORazepam 1 MG TAB PO PRN (10:30)
[2017-09-15] MEDS ORDERED: POTASSIUM CHLORIDE 25 MEQ EFFERVESCENT TAB PO ONE (10:30)
[2017-09-15] MEDS ORDERED: LORazepam 2 MG TAB PO PRN (10:30)
[2017-09-15] MEDS ORDERED: FLUMAZENIL 0.5 MG/5 ML VIAL IV PUSH PRN (10:30)
[2017-09-15] MEDS ORDERED: LORazepam 2 MG/ML VIAL IV PUSH PRN ×4 (10:30)
[2017-09-15] MEDS: SODIUM CHLOR 0.9% 1000 ML INJ 1,000 ML IV SCH (13:48)
[2017-09-15] MEDS: cefTRIAXone INJ 1,000 MG in SODIUM CHLORIDE 0.9% INJ 100 ML IV SCH (17:24)
[2017-09-15] MEDS: ACETAMINOPHEN 500 MG CPLT PO PRN (17:32)
[2017-09-15] MEDS: AZITHROMYCIN INJ 500 MG in SODIUM CHLOR 0.9% 250 ML INJ 250 ML IV SCH (18:09)
[2017-09-15] MEDS ORDERED: LORazepam 2 MG TAB PO SCH (22:00)
[2017-09-16 00:09] VITALS: BP 120/70; PULSE 78; RESP 16; TEMP 96.3; O2SAT 97
[2017-09-16] MEDS: SODIUM CHLOR 0.9% 1000 ML INJ 1,000 ML IV SCH ×3 (02:10→12:18)
[2017-09-16 04:03] VITALS: BP 142/73; PULSE 86; RESP 17; TEMP 97.8; O2SAT 94
[2017-09-16 08:00] VITALS: BP 140/64; PULSE 82; RESP 16; TEMP 97.7; O2SAT 98
[2017-09-16 08:26] LABS: HEMATOCRIT 29.6 % (35.0-46.0); HEMOGLOBIN 10.2 GM/DL (11.6-15.3); MEAN CELL VOLUME 98.3 FL (80.0-100.0); MEAN CORPUSCULAR HEMOGLOBIN 33.9 PG (27.0-34.0); MEAN CORPUSCULAR HGB CONC 34.5 % (32.0-36.0); MEAN PLATELET VOLUME 8.8 FL (7.0-11.0); PLATELET COUNT 272 TH/MM3 (150-450); RED BLOOD COUNT 3.01 MIL/MM3 (4.00-5.30); RED CELL DISTRIBUTION WIDTH 12.7 % (11.6-17.2); WHITE BLOOD COUNT 8.3 TH/MM3 (4.0-11.0)
--- NOTE | 2017-09-16 08:33 | HHI.PR ---
Subjective Remarks Patient seen and examined this morning. Vitals are stable she's afebrile. Reports she gets weak when she tries to get up. Has diarrhea. Has some SOB but states its better. Lives with boyfriend and another friend in trailer. Objective Vital Signs Date Time Temp Pulse Resp B/P (MAP) Pulse Ox O2 Delivery O2 Flow Rate FiO2 09/16/17 04:03 97.8 86 17 142/73 (96) 94 09/16/17 00:09 96.3 78 16 120/70 (87) 97 09/15/17 23:00 74 09/15/17 20:22 97.1 83 17 106/58 (74) 93 09/15/17 16:00 96.0 85 18 101/60 (74) 98 09/15/17 12:00 96.9 74 17 126/70 (88) 94 I/O 09/15/17 09/15/17 09/15/17 09/16/17 09/16/17 09/16/17 07:00 15:00 23:00 07:00 15:00 23:00 Intake Total 2906 ml 780 ml Output Total 1400 ml Balance 2906 ml -620 ml Intake Oral 1920 ml 780 ml IV Total 986 ml Output Urine Total 1400 ml # Voids 2 5 # Bowel Movements 3 3 Result Diagram: 09/15/17 0930 09/15/17 0807 Imaging Last Impressions Abdomen/Pelvis CT 09/14/17 1100 Signed Impressions: Service Date/Time: Thursday, September 14, 2017 12:53 - CONCLUSION: 1. Left lung base airspace consolidation with air bronchograms. This is similar to report of 03/01/2013 chest radiograph and therefore may be chronic in etiology. However, differential considerations include pneumonia and aspiration in the appropriate clinical setting. 2. Otherwise, no definitive acute abnormality in the abdomen or pelvis to explain patient's symptoms. Specifically, no evidence for diverticulitis. Normal appendix. 3. Ancillary findings include hepatic steatosis and mild degenerative lumbar spondylosis. Andrzej Jalloh MD Gall Bladder Ultrasound 09/14/17 0000 Signed Impressions: Service Date/Time: Thursday, September 14, 2017 18:07 - CONCLUSION: 1. Prominent liver with findings characteristic of hepatic steatosis. 2. Unremarkable gallbladder with no evidence of cholelithiasis. Kenny Menard MD Chest X-Ray 09/14/17 0000 Signed Impressions: Service Date/Time: Thursday, September 14, 2017 15:40 - CONCLUSION: Left lower lobe infiltrate most characteristic of pneumonitis. Mor Page MD Abdomen X-Ray 09/14/17 0000 Signed Impressions: Service Date/Time: Thursday, September 14, 2017 17:42 - CONCLUSION: 1. No definite radiopaque renal calculi. 2. Nonobstructive bowel gas pattern. Andrzej Jalloh MD Objective Remarks GENERAL: sitting up in bed, eating breakfast nad SKIN: Warm and dry. HEAD: Normocephalic. Poor dentition. EYES: No scleral icterus. No injection or drainage. NECK: Supple, trachea midline. No JVD or lymphadenopathy. CARDIOVASCULAR: Regular rate and rhythm without murmurs, gallops, or rubs. RESPIRATORY: Left lower lung crackles. No accessory muscle use. GASTROINTESTINAL: Abdomen soft, non-tender, nondistended. MUSCULOSKELETAL: No cyanosis, or edema. BACK: Nontender without obvious deformity. A/P Problem List: (1) UTI (urinary tract infection) ICD Code: N39.0 - Urinary tract infection, site not specified (2) PNA (pneumonia) ICD Code: J18.9 - Pneumonia, unspecified organism Status: Acute (3) RUQ discomfort ICD Code: R10.11 - Abdominal discomfort in right upper quadrant Status: Acute Assessment and Plan 52 yo female with: Sepsis Admission - Patient met sepsis criteria on admission - Source likely urine and or lung - Leukocytosis is improving and the patient is without any fevers, blood cultures negative to date Pneumonia - Left lower lobe infiltrate seen on chest x-ray - Urine positive strep pneumo antigen - The patient is currently on azithromycin and ceftriaxone (09/14- ) UTI - UA suggestive of UTI, urine culture shows mixed jordan - Antibiotics per above Abdominal pain - CT negative for any abdominal pathology. - C. difficile pending, stool studies pending Alcohol abuse - [facility] protocol - LFTs are consistent Fluids: Normal saline 100 cc per hour Electrolytes: Hypokalemia we'll replace, hyponatremia likely from alcohol use Nutrition: Regular diet PT eval Discharge Planning DC pending continued clinical improvement likely tomorrow Problem Qualifiers (1) PNA (pneumonia): Qualified Codes: J18.1 - Lobar pneumonia, unspecified organism Rodríguez,Nereyda Morena MD Sep 16, 2017 08:33
[2017-09-16 08:42] LABS: BICARBONATE 24.2 MEQ/L (21.0-32.0); CALCIUM 7.8 MG/DL (8.5-10.1); CREATININE 0.83 MG/DL (0.50-1.00)
[2017-09-16] MEDS ORDERED: POTASSIUM CHLORIDE 10 MEQ CONTROLLED RELEASE TAB PO ONE (09:00)
[2017-09-16] MEDS: PANTOPRAZOLE SOD 40 MG DELAYED RELEASE TAB PO SCH (09:45)
[2017-09-16 12:00] VITALS: BP 133/65; PULSE 85; RESP 18; TEMP 99.3; O2SAT 93
[2017-09-16 16:00] VITALS: BP 124/59; PULSE 91; RESP 16; TEMP 100; O2SAT 96
[2017-09-16] MEDS: BENZONATATE 100 MG CAP PO PRN (17:40)
[2017-09-16] MEDS: cefTRIAXone INJ 1,000 MG in SODIUM CHLORIDE 0.9% INJ 100 ML IV SCH (17:40)
[2017-09-16] MEDS: AZITHROMYCIN INJ 500 MG in SODIUM CHLOR 0.9% 250 ML INJ 250 ML IV SCH (18:34)
[2017-09-16 20:34] VITALS: BP 137/79; PULSE 102; RESP 18; TEMP 96.8; O2SAT 98
[2017-09-17] VITALS (7 sets, daily range): BP systolic 132–155; BP diastolic 67–81; PULSE 84–92; RESP 16–21; TEMP 96.1–99.3; O2SAT 92–100
[2017-09-17] MEDS: SODIUM CHLOR 0.9% 1000 ML INJ 1,000 ML IV SCH ×2 (00:33→04:17)
[2017-09-17] MEDS: ACETAMINOPHEN 500 MG CPLT PO PRN (01:30)
[2017-09-17] MEDS: BENZONATATE 100 MG CAP PO PRN (01:31)
[2017-09-17] MEDS: PANTOPRAZOLE SOD 40 MG DELAYED RELEASE TAB PO SCH (08:41)
[2017-09-17] MEDS ORDERED: LORazepam 2 MG TAB PO SCH (09:00)
[2017-09-17] MEDS ORDERED: WALKER WHEELS/F1 MIS (09:41)
--- NOTE | 2017-09-17 09:42 | HHI.PR ---
Subjective Remarks Patient seen and examined this morning. Vitals are stable she's afebrile. Feels back to herself. Cough better. I mentioned home health she says she doesn't want it because she lives at a senior home with friends but no one can find out. She does not have a doctor but has transportation to get to one if one can be provided. Had loose stool this am. Feels deconditioned, states she has felt weak for months. Objective Vital Signs Date Time Temp Pulse Resp B/P (MAP) Pulse Ox O2 Delivery O2 Flow Rate FiO2 09/17/17 08:00 97.1 92 17 135/74 (94) 97 09/17/17 04:50 99.3 90 21 155/81 (105) 92 09/17/17 00:15 97.3 91 16 132/74 (93) 98 09/16/17 20:34 96.8 102 18 137/79 (98) 98 09/16/17 16:00 100.0 91 16 124/59 (80) 96 09/16/17 12:00 99.3 85 18 133/65 (87) 93 I/O 09/16/17 09/16/17 09/16/17 09/17/17 09/17/17 09/17/17 07:00 15:00 23:00 07:00 15:00 23:00 Intake Total 780 ml 1000 ml 1650 ml 1380 ml Output Total 1400 ml 650 ml 1000 ml Balance -620 ml 1000 ml 1000 ml 380 ml Intake Oral 780 ml 1300 ml 380 ml IV Total 1000 ml 350 ml 1000 ml Output Urine Total 1400 ml 650 ml 1000 ml # Bowel Movements 3 1 4 Result Diagram: 09/16/17 0646 09/16/17 0646 Imaging Last Impressions Abdomen/Pelvis CT 09/14/17 1100 Signed Impressions: Service Date/Time: Thursday, September 14, 2017 12:53 - CONCLUSION: 1. Left lung base airspace consolidation with air bronchograms. This is similar to report of 03/01/2013 chest radiograph and therefore may be chronic in etiology. However, differential considerations include pneumonia and aspiration in the appropriate clinical setting. 2. Otherwise, no definitive acute abnormality in the abdomen or pelvis to explain patient's symptoms. Specifically, no evidence for diverticulitis. Normal appendix. 3. Ancillary findings include hepatic steatosis and mild degenerative lumbar spondylosis. Andrzej Jalloh MD Gall Bladder Ultrasound 09/14/17 0000 Signed Impressions: Service Date/Time: Thursday, September 14, 2017 18:07 - CONCLUSION: 1. Prominent liver with findings characteristic of hepatic steatosis. 2. Unremarkable gallbladder with no evidence of cholelithiasis. Kenny Menard MD Chest X-Ray 09/14/17 0000 Signed Impressions: Service Date/Time: Thursday, September 14, 2017 15:40 - CONCLUSION: Left lower lobe infiltrate most characteristic of pneumonitis. Mor Page MD Abdomen X-Ray 09/14/17 0000 Signed Impressions: Service Date/Time: Thursday, September 14, 2017 17:42 - CONCLUSION: 1. No definite radiopaque renal calculi. 2. Nonobstructive bowel gas pattern. Andrzej Jalloh MD Objective Remarks GENERAL: sitting up in bed, eating breakfast nad SKIN: Warm and dry. HEAD: Normocephalic. Poor dentition. EYES: No scleral icterus. No injection or drainage. NECK: Supple, trachea midline. No JVD or lymphadenopathy. CARDIOVASCULAR: Regular rate and rhythm without murmurs, gallops, or rubs. RESPIRATORY: Left lower lung crackles. No accessory muscle use. GASTROINTESTINAL: Abdomen soft, non-tender, nondistended. MUSCULOSKELETAL: No cyanosis, or edema. BACK: Nontender without obvious deformity. A/P Problem List: (1) UTI (urinary tract infection) ICD Code: N39.0 - Urinary tract infection, site not specified (2) PNA (pneumonia) ICD Code: J18.9 - Pneumonia, unspecified organism Status: Acute (3) RUQ discomfort ICD Code: R10.11 - Abdominal discomfort in right upper quadrant Status: Acute Assessment and Plan 52 yo female with: Sepsis Admission - Patient met sepsis criteria on admission - Source likely urine and or lung - Leukocytosis is improving and the patient is without any fevers, blood cultures negative to date - urine culture mixed jordan Pneumonia - Left lower lobe infiltrate seen on chest x-ray - Urine positive strep pneumo antigen - The patient is currently on azithromycin and ceftriaxone (09/14- ) UTI - UA suggestive of UTI, urine culture shows mixed jordan - Antibiotics per above Abdominal pain - CT negative for any abdominal pathology. - C. difficile negative - stool studies pending: cryptosporidium and giardia - continues to have significant diarrhea Alcohol abuse - [facility] protocol - LFTs are consistent Fluids:HLIV Electrolytes: currently wnl Nutrition: Regular diet PT eval recommends home with home health CM to assist with reccs/list for outpatient follow up Discharge Planning PT recommends home with home health, wheeled walker. Continues to have significant diarrhea, so will hold dc until stool studies result, likely later today or tomorrow Case management to assist. Problem Qualifiers (1) PNA (pneumonia): Qualified Codes: J18.1 - Lobar pneumonia, unspecified organism Nereyda Rodríguez MD Sep 17, 2017 09:42
[2017-09-17] MEDS: LEVOFLOXACIN 750 MG TAB PO SCH (10:10)
[2017-09-17 10:13] LABS: AUTOMATED NEUTROPHIL # 4.8 TH/MM3 (1.8-7.7); BASOPHIL % 0.3 % (0.0-2.0); EOSINOPHIL % 0.4 % (0.0-4.0); HEMATOCRIT 29.4 % (35.0-46.0); HEMOGLOBIN 9.9 GM/DL (11.6-15.3); MEAN CELL VOLUME 98.6 FL (80.0-100.0); MEAN CORPUSCULAR HEMOGLOBIN 33.1 PG (27.0-34.0); MEAN CORPUSCULAR HGB CONC 33.5 % (32.0-36.0); MEAN PLATELET VOLUME 8.4 FL (7.0-11.0); MONO % 14.7 % (0.0-8.0); NEUT % 69.6 % (16.0-70.0); PLATELET COUNT 274 TH/MM3 (150-450); RED BLOOD COUNT 2.98 MIL/MM3 (4.00-5.30); RED CELL DISTRIBUTION WIDTH 12.6 % (11.6-17.2); WHITE BLOOD COUNT 6.9 TH/MM3 (4.0-11.0)
[2017-09-17 10:38] LABS: BICARBONATE 24.9 MEQ/L (21.0-32.0); CALCIUM 7.5 MG/DL (8.5-10.1); CREATININE 0.76 MG/DL (0.50-1.00)
[2017-09-17] MEDS ORDERED: POTASSIUM CHLORIDE 25 MEQ EFFERVESCENT TAB PO ONE (12:00)
[2017-09-18] VITALS: BP 139/67; PULSE 82; PULSE 89; RESP 18; TEMP 98.5; O2SAT 96
[2017-09-18 04:00] VITALS: BP 138/64; PULSE 84; RESP 18; TEMP 99.3; O2SAT 97
[2017-09-18 07:48] LABS: BICARBONATE 25.9 MEQ/L (21.0-32.0); CALCIUM 7.7 MG/DL (8.5-10.1); CREATININE 0.87 MG/DL (0.50-1.00)
[2017-09-18 08:00] VITALS: BP 122/63; PULSE 83; PULSE 88; RESP 16; TEMP 99.4; O2SAT 92
[2017-09-18] MEDS ORDERED: LORazepam 2 MG TAB PO SCH (09:00)
[2017-09-18] MEDS: PANTOPRAZOLE SOD 40 MG DELAYED RELEASE TAB PO SCH (09:23)
[2017-09-18] MEDS: LEVOFLOXACIN 750 MG TAB PO SCH (09:23)
[2017-09-18 12:00] VITALS: BP_SYST 127; PULSE 84; RESP 16; TEMP 96.7; O2SAT 95
[2017-09-18] MEDS ORDERED: LEVA750T9 PO (15:53)
--- NOTE | 2017-09-18 17:04 | HHI.PR ---
Objective Vitals Vital Signs Date Time Temp Pulse Resp B/P (MAP) Pulse Ox O2 Delivery O2 Flow Rate FiO2 09/18/17 12:00 96.7 84 16 127/ 95 09/18/17 08:00 99.4 88 16 122/63 (82) 92 09/18/17 08:00 83 09/18/17 04:00 99.3 84 18 138/64 (88) 97 09/18/17 00:00 98.5 89 18 139/67 (91) 96 09/18/17 00:00 82 09/17/17 20:00 97.8 84 18 141/70 (93) 100 I/O 09/17/17 09/17/17 09/17/17 09/18/17 09/18/17 09/18/17 07:00 15:00 23:00 07:00 15:00 23:00 Intake Total 1380 ml 950 ml 800 ml 840 ml Output Total 1000 ml Balance 380 ml 950 ml 800 ml 840 ml Intake Oral 380 ml 800 ml 840 ml IV Total 1000 ml 950 ml Output Urine Total 1000 ml # Voids 3 4 # Bowel Movements 4 0 3 Result Diagram: 09/17/17 0858 09/18/17 0620 Juan Bradshaw MD Sep 18, 2017 17:04
== END 2017-09-18 17:52 | disposition home or self-care (01) | DRG 871 ==
LOC: NEPC 10:20 → NEDA 14:52 → N07A 16:49
PROVIDERS: ADMIT Hospitalist; ATTEND Hospitalist
DX: A41.9 Sepsis, unspecified organism (principal); J18.9 Pneumonia, unspecified organism; K76.0 Fatty (change of) liver, not elsewhere classified; E87.1 Hypo-osmolality and hyponatremia; N39.0 Urinary tract infection, site not specified; R15.9 Full incontinence of feces; F17.210 Nicotine dependence, cigarettes, uncomplicated; J45.909 Unspecified asthma, uncomplicated; R19.7 Diarrhea, unspecified; Z23 Encounter for immunization; F12.90 Cannabis use, unspecified, uncomplicated; Z86.14 Personal history of Methicillin resistant Staphylococcus aureus infection; R31.9 Hematuria, unspecified; E87.6 Hypokalemia; F10.10 Alcohol abuse, uncomplicated
CPT/HCPCS: 71020; 74000; 74177; 76705; 80048; 80053; 80307; 81001; 83605; 83690; 83735; 85007; 85025; 85027; 87040; 87070; 87086; 87205; 87328; 87329; 87449; 87493; 87506; 90686; 90732; 96361; 96372; 96374; 96375; J0456; J0500; J0696; J2405; J2543; J7030; J7050; Q2038; Q9967

== ENCOUNTER 2017-12-13 08:42 | Emergency (ER) | payer SELFPAY ==
[~2017-12-13] VITALS: Ht 172.7 cm; Wt 57.0 kg
[~2017-12-13 08:42] MED LIST changes: +LEVA750T9 PO; +WALKER WHEELS/F1 MIS
[2017-12-13 08:50] VITALS: BP 142/79; PULSE 85; RESP 17; TEMP 97.4; O2SAT 99
[2017-12-13] MEDS ORDERED: RESP: ALBUTEROL 2.5 MG/IPRATROPIUM 0.5 MG NEB (SCH) INH ONE (09:15)
[2017-12-13] MEDS ORDERED: predniSONE 20 MG TAB PO ONE (09:15)
--- NOTE | 2017-12-13 09:33 | PD ---
HPI Chief Complaint: Cold / Flu Symptoms Time Seen by Provider: 09:32 (Lee Ibrahim) Time Seen by Provider: 09:02 (Christine Xie) Travel History International Travel<30 days: No Contact w/Intl Traveler<30days: No Traveled to known affect area: No (Lee Ibrahim) History of Present Illness HPI 52-year-old female presents to the emergency department with 2 complaints. Her first complaint is cough, chest congestion, chest tightness, sore throat, nasal congestion for approximately 3 weeks. Denies fevers. Reports smoking cigars. Reports history of asthma and has been told she may have COPD. Reports wheezing. Reports vomiting secondary to cough exacerbations. Denies chest pain. Denies abdominal pain. Has not taken any medication or try any treatments to alleviate her symptoms. No known aggravating or relieving factors. Symptoms are mild in severity. Her second complaint is a rash to the back of her neck, behind her right ear, and to her mid and lower back for approximately the last 3 weeks. Denies fevers. Says the rash is sometimes itchy. No others with similar symptoms. Says she has had a similar rash like this in the past. Says she has history of eczema. Denies new exposures to lotions, soaps, detergents, perfumes, foods, medications, environmental exposures. Has history of MRSA. Has not taken any medication or try any treatments to alleviate the rash. Symptoms are mild in severity. No known aggravating or relieving factors. Is trying to establish primary care at [facility]. Allergies to codeine and morphine. Has no other medical complaints. History of asthma, possibly COPD. No other modifying factors or associated signs and symptoms (Christine Xie) [facility] Past Medical History Asthma: Yes Autoimmune Disease: No Anxiety: Yes Depression: No Heart Rhythm Problems: No Cancer: No Cardiovascular Problems: No High Cholesterol: No Chemotherapy: No Chest Pain: Yes Congestive Heart Failure: No Diabetes: No Diminished Hearing: No Endocrine: No GERD: Yes Genitourinary: No Immune Disorder: No Musculoskeletal: No Neurologic: No Psychiatric: Yes Reproductive: No Respiratory: Yes Radiation Therapy: No Sickle Cell Disease: No Sleep Apnea: No Ulcer: Yes Menopausal: Yes (Lee Ibrahim) Past Surgical History AICD: No Arteriovenous Shunt: No Insulin Pump: No Joint Replacement: No Pacemaker: No (Lee Ibrahim) Social History Alcohol Use: Yes (couple beers a day) Tobacco Use: Yes (1/2 PPD) Substance Use: No (Lee Ibrahim) Allergies-Medications (Allergen,Severity, Reaction): Coded Allergies: codeine (Verified Allergy, Intermediate, Itching, 12/13/17) *MDRO Multi-Drug Resistant Organism (Verified Adverse Reaction, Unknown, 06/22/17) 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 morphine (Verified Adverse Reaction, Unknown, ITCHING, 12/13/17) Reported Meds & Prescriptions Reported Meds & Active Scripts Active Doxycycline Hyclate 100 Mg Cap 100 Mg PO BID 10 Days Tessalon Perles (Benzonatate) 100 Mg Cap 100 Mg PO TID PRN 3 Days Deltasone (Prednisone) 20 Mg Tab 40 Mg PO DAILY 4 Days start 12/14/2017 Ventolin Hfa 18 GM Inh (Albuterol Sulfate) 90 Mcg/Act Aer 2 Puff INH Q4-6H PRN Levaquin (Levofloxacin) 750 Mg Tablet 750 Mg PO DAILY Walker with Front Wheels (Device) 1 Mis Mis Ea .ROUTE DIRECTED Bactrim DS (Sulfamethoxazole-Trimethoprim) 800-160 Mg Tab 1 Tab PO BID Penicillin V Potassium 500 Mg Tab 500 Mg PO Q6H 10 Days Clindamycin (Clindamycin HCl) 150 Mg Cap 450 Mg PO Q8HR 10 Days Triamcinolone Topical (Triamcinolone Acetonide) 0.1 % Oint 1 Applic TOPICAL BID (Christine Xie) Review of Systems Except as stated in HPI: all other systems reviewed are Neg (Christine Xie) Physical Exam Narrative GENERAL: Well-nourished, well-developed female patient, in no acute distress; afebrile, nontoxic-appearing; disheveled SKIN: Warm and dry. Dry, erythematous, scabbed rash to the back of the neck, behind the left ear; without cellulitis, drainage. Dry, flesh-colored rash to the mid and lower back. No cellulitic process noted. HEAD: Atraumatic. Normocephalic. EYES: Pupils equal and round. No scleral icterus. No injection or drainage. ENT: Mucosa pink and moist. No erythema or exudates. No uvular edema. No uvular , palatal, or tonsillar deviation. Airway patent. Nares without nasal blood, purulent drainage or septal hematoma. EARS: Bilateral pinnae and external canals appear within normal limits. Bilateral tympanic membranes without erythema, dullness or perforation. NECK: Trachea midline. No lymphadenopathy. CARDIOVASCULAR: Regular rate and rhythm. No murmur appreciated. RESPIRATORY: No accessory muscle use. Lungs with rhonchi in right lower lobe to auscultation; rhonchi cleared after cough. Breath sounds equal bilaterally. No retractions or tachypnea. No Audible wheezing noted. GASTROINTESTINAL: Abdomen soft, non-tender, nondistended. Hepatic and splenic margins not palpable. Bowel sounds are active 4 quadrants. MUSCULOSKELETAL: No obvious deformities. No clubbing. No cyanosis. No edema. NEUROLOGICAL: Awake and alert. Oriented 3. No obvious cranial nerve deficits. Motor grossly within normal limits. Normal speech. Moves all extremities. 5/5 strength to all extremities. PSYCHIATRIC: Appropriate mood and affect; insight and judgment normal. (Christine Xie) Data Data Last Documented VS Vital Signs Date Time Temp Pulse Resp B/P (MAP) Pulse Ox O2 Delivery O2 Flow Rate FiO2 12/13/17 08:50 97.4 85 17 142/79 (100) 99 (Christine Xie) Orders Orders Prednisone (Deltasone) (12/13/17 09:15) Albuterol-Ipratropium Neb (Duoneb Neb) (12/13/17 09:15) Ed Discharge Order (12/13/17 09:47) (Christine Xie) [facility] Medical Decision Making Medical Screen Exam Complete: Yes Emergency Medical Condition: Yes Medical Record Reviewed: Yes (Lee Ibrahim) Medical Screen Exam Complete: Yes Emergency Medical Condition: Yes Medical Record Reviewed: Yes Differential Diagnosis Acute bronchitis, upper respiratory infection, pneumonia, nonspecific rash, eczema, MRSA, staph infection Narrative Course 52-year-old female with bronchitis and nonspecific rash. She is afebrile and nontoxic-appearing. Denies fever. Reports vomiting secondary to cough exacerbations. Patient is in no acute distress. Oxygen saturation is 99% on room air. No audible wheezing. Reports history of asthma and has been told she possibly has COPD. Smokes cigars. DuoNeb and Deltasone ordered. On reexamination the patient reports improvement in symptoms. Denies chest tightness or shortness of breath. Lungs are clear and equal throughout. Ventolin inhaler, Deltasone, Tessalon Perles, doxycycline prescribed for home. 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 Instructed patient to follow up with primary care provider. Patient verbalizes understanding and agreement with treatment plan. Patient is medically cleared and stable for discharge. Discussed reasons to return to the emergency department. Patient agrees with treatment plan. The patients vital signs are stable and the patient is stable for outpatient follow-up and treatment. Patient discharged home, stable and in no acute distress. (Christine Xie) Diagnosis Primary Impression: Bronchitis Additional Impression: Rash Referrals: [facility] [employer] Att[employer] Primary Care Physician Patient Instructions: Acute Bronchitis (ED), Acute Rash (ED), General Instructions Additional Instructions: Use Albuterol inhaler as prescribed Take oral steroids as prescribed and complete full course Use Tessalon Perles as prescribed to decrease coughing spasms [id number] decongestants or antihistamines as directed and as needed for symptom management Your cough can last 4-6 weeks Drink plenty of fluids to prevent dehydration Use hot air humidifier to decrease cough exacerbation Turn off ceiling fans and sleep with head of bed elevated Avoid triggers such as second hand smoke, dust, known allergens Follow-up with your primary care provider Return to the emergency department immediately with worsening of symptoms Take oral steroids as prescribed [id number] topicals to reduce itch Benadryl as directed and as needed to reduce itch Follow-up with your primary care provider Return to the emergency department immediately with worsening of symptoms Med/Other Pt SpecificInfo: Prescription(s) given (Christine Xie) Scripts Doxycycline Hyclate (Doxycycline Hyclate) 100 Mg Cap 100 MG PO BID for Infection for 10 Days, #20 CAP 0 Refills Prov: Christine Xie 12/13/17 Benzonatate (Tessalon Perles) 100 Mg Cap 100 MG PO TID Y for COUGH for 3 Days, CAP 0 Refills Prov: Christine Xie 12/13/17 Prednisone (Deltasone) 20 Mg Tab 40 MG PO DAILY for 4 Days, #8 TAB 0 Refills start 12/14/2017 Prov: Christine Xie 12/13/17 Albuterol 18 GM Inh (Ventolin Hfa 18 GM Inh) 90 Mcg/Act Aer 2 PUFF INH Q4-6H Y for SOB/WHEEZING, #1 INHALER 0 Refills Prov: Christine Xie 12/13/17 Disposition: 01 DISCHARGE HOME Condition: Stable Lee Ibrahim Dec 13, 2017 09:33 Christine Xie Dec 13, 2017 09:38
[2017-12-13] MEDS ORDERED: AZIT500T2 PO (09:38)
[2017-12-13] MEDS ORDERED: VENTAER INH (09:38)
[2017-12-13] MEDS ORDERED: BENZ100 PO (09:38)
[2017-12-13] MEDS ORDERED: PRED-503 PO (09:38)
[2017-12-13] MEDS ORDERED: DOXY100C PO (09:46)
== END 2017-12-13 09:58 | disposition home or self-care (01) ==
LOC: NEPK 08:42
DX: J40 Bronchitis, not specified as acute or chronic (principal); R21 Rash and other nonspecific skin eruption; J45.909 Unspecified asthma, uncomplicated; F41.9 Anxiety disorder, unspecified; K21.9 Gastro-esophageal reflux disease without esophagitis; L30.9 Dermatitis, unspecified; F17.290 Nicotine dependence, other tobacco product, uncomplicated; Z86.14 Personal history of Methicillin resistant Staphylococcus aureus infection
CPT/HCPCS: 94664; 99283; J7512

== ENCOUNTER 2017-12-31 13:34 | Emergency (ER) | payer SELFPAY ==
[~2017-12-31 13:34] MED LIST changes: +BENZ100 PO; +DOXY100C PO; +PRED-503 PO; +VENTAER INH
[2017-12-31 13:48] VITALS: BP 148/83; PULSE 102; RESP 18; TEMP 98.2; O2SAT 99
[2017-12-31] MEDS ORDERED: BACT800T5 PO (14:29)
[2017-12-31] MEDS ORDERED: PERM5CRE11 TOPICAL (14:29)
--- NOTE | 2017-12-31 14:29 | PD ---
HPI Chief Complaint: Skin Problem Time Seen by Provider: 14:05 Travel History International Travel<30 days: No Contact w/Intl Traveler<30days: No Traveled to known affect area: No History of Present Illness HPI 52-year-old female presents to the emergency department with complaint of worsening of itchy rash to her body for the last 6 weeks, and a rash to the back of her neck, scalp and bilateral ears after using a hair dye approximately 3-4 weeks ago. I saw the patient in the emergency department December 13 and treated her for the rash with doxycycline, steroids and instructed patient to follow-up with associate application developer. She started the doxycycline a week ago and she never filled the steroids because she could not afford them. Her rash on her body was to the lower back, waistline area and has now spread to her entire back , chest, abdomen, bilateral upper and lower extremities. She denies fever, vomiting. Says she does throw up after taking the doxycycline because it upsets her stomach. Rash is itchy, tight, burning. Says no one else has the rash that she is in contact with. Symptoms are mild to moderate in severity. Has also tried [id number] hydrocortisone cream with no relief of symptoms. No primary care provider. No known allergies. Reports history of eczema, otherwise denies significant past medical history. Has no other medical complaints. No other modifying factors or associated signs and symptoms. PFSH Past Medical History Asthma: Yes Autoimmune Disease: No Anxiety: Yes Depression: No Heart Rhythm Problems: No Cancer: No Cardiovascular Problems: No High Cholesterol: No Chemotherapy: No Chest Pain: Yes Congestive Heart Failure: No Diabetes: No Diminished Hearing: No Endocrine: No GERD: Yes Genitourinary: No Immune Disorder: No Musculoskeletal: No Neurologic: No Psychiatric: Yes Reproductive: No Respiratory: Yes Radiation Therapy: No Sickle Cell Disease: No Sleep Apnea: No Ulcer: Yes Tetanus Vaccination: < 5 Years ?: Not Menopausal: Yes Past Surgical History AICD: No Arteriovenous Shunt: No Insulin Pump: No Joint Replacement: No Pacemaker: No Social History Alcohol Use: Yes (occ) Tobacco Use: Yes (/2 PPD) Substance Use: Yes (thc) Allergies-Medications (Allergen,Severity, Reaction): Coded Allergies: codeine (Verified Allergy, Intermediate, Itching, 12/13/17) *MDRO Multi-Drug Resistant Organism (Verified Adverse Reaction, Unknown, 06/22/17) 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 morphine (Verified Adverse Reaction, Unknown, ITCHING, 12/13/17) Reported Meds & Prescriptions Reported Meds & Active Scripts Active Elimite Topical (Permethrin) 5% Cream 1 Applic TOPICAL ONCE Bactrim DS (Sulfamethoxazole-Trimethoprim) 800-160 Mg Tab 1 Tab PO BID 10 Days Doxycycline Hyclate 100 Mg Cap 100 Mg PO BID 10 Days Review of Systems Except as stated in HPI: all other systems reviewed are Neg Physical Exam Narrative GENERAL: Well-nourished, well-developed female patient, in no acute distress; afebrile, nontoxic-appearing; disheveled SKIN: Warm and dry. Dry, erythematous, scabbed rash to the back of the neck, behind the left ear; bilateral ears appear edematous; dry crusted drainage noted to bilateral ears and back of the neck. Generalized, pimple-like rash noted to back, chest, abdomen, bilateral upper and lower extremities consistent with possible scabies rash. No cellulitic process noted. HEAD: Atraumatic. Normocephalic. EYES: Pupils equal and round. No scleral icterus. No injection or drainage. ENT: Mucosa pink and moist. No erythema or exudates. No uvular edema. No uvular , palatal, or tonsillar deviation. Airway patent. Nares without nasal blood, purulent drainage or septal hematoma. EARS: Bilateral pinnae and external canals appear within normal limits. Bilateral tympanic membranes without erythema, dullness or perforation. NECK: Trachea midline. No lymphadenopathy. CARDIOVASCULAR: Regular rate and rhythm. No murmur appreciated. RESPIRATORY: No accessory muscle use. Lungs with rhonchi in right lower lobe to auscultation; rhonchi cleared after cough. Breath sounds equal bilaterally. No retractions or tachypnea. No Audible wheezing noted. GASTROINTESTINAL: Abdomen soft, non-tender, nondistended. Hepatic and splenic margins not palpable. Bowel sounds are active 4 quadrants. MUSCULOSKELETAL: No obvious deformities. No clubbing. No cyanosis. No edema. NEUROLOGICAL: Awake and alert. Oriented 3. No obvious cranial nerve deficits. Motor grossly within normal limits. Normal speech. Moves all extremities. 5/5 strength to all extremities. PSYCHIATRIC: Appropriate mood and affect; insight and judgment normal. Data Data Last Documented VS Vital Signs Date Time Temp Pulse Resp B/P (MAP) Pulse Ox O2 Delivery O2 Flow Rate FiO2 12/31/17 13:48 98.2 102 18 148/83 (104) 99 Orders Orders Prednisone (Deltasone) (12/31/17 14:30) Ed Discharge Order (12/31/17 14:30) Wound Culture And Gram Stain (12/31/17 14:31) MDM Medical Decision Making Medical Screen Exam Complete: Yes Emergency Medical Condition: Yes Medical Record Reviewed: Yes Differential Diagnosis Dermatitis, scabies, tinea capitis, eczema Narrative Course This is a 52-year-old female who I saw December 13 for same complaint and worsening of symptoms. She is currently taking doxycycline and never filled her prescription for steroids. The rash is itchy in nature. Both of her ears and the back of her neck are dry and crusted. Her rash to her body appears more like a scabies rash. She is afebrile and nontoxic-appearing. Denies fever , vomiting. I discussed the patient with Dr. Santiago, my attending physician , and he agrees with my plan of care. Wound culture obtained from the back of the neck and is pending. Deltasone administered in the ER. Bactrim prescribed for home. Patient says she still has a prescription of Deltasone that I prescribed her last and will fill that prescription. Instructed patient to follow-up with dermatology. Instructed patient to follow up with primary care provider. Patient verbalizes understanding and agreement with treatment plan. Patient is medically cleared and stable for discharge. Discussed reasons to return to the emergency department. Patient agrees with treatment plan. The patients vital signs are stable and the patient is stable for outpatient follow- up and treatment. Patient discharged home, stable and in no acute distress. Diagnosis Primary Impression: Rash and nonspecific skin eruption Referrals: [facility] [employer] Primary Care Physician Patient Instructions: Acute Rash (ED), Dermatitis (ED), General Instructions Additional Instructions: Take oral steroids as prescribed [id number] topicals to reduce itch Benadryl as directed and as needed to reduce itch Follow-up with your primary care provider Follow-up with associate application developer Return to the emergency department immediately with worsening of symptoms Med/Other Pt SpecificInfo: Prescription(s) given Scripts Permethrin Topical (Elimite Topical) 5% Cream 1 APPLIC TOPICAL ONCE for Scabies, #1 TUBE 0 Refills Prov: Rassi,Christine K PHYSICIAN GENERAL [facility]ACTICE 12/31/17 Sulfamethoxazole-Trimethoprim (Bactrim DS) 800-160 Mg Tab 1 TAB PO BID for Infection for 10 Days, #20 TAB 0 Refills Prov: Christine Xie 12/31/17 Disposition: 01 DISCHARGE HOME Condition: Stable Christine Xie Dec 31, 2017 14:29
[2017-12-31] MEDS ORDERED: predniSONE 20 MG TAB PO ONE (14:30)
== END 2017-12-31 14:50 | disposition home or self-care (01) ==
LOC: NEPD 13:34
DX: R21 Rash and other nonspecific skin eruption (principal); J45.909 Unspecified asthma, uncomplicated; L30.9 Dermatitis, unspecified; B96.89 Other specified bacterial agents as the cause of diseases classified elsewhere; Z88.5 Allergy status to narcotic agent; Z72.0 Tobacco use; Z88.2 Allergy status to sulfonamides
CPT/HCPCS: 86403; 87070; 99283; J7512

== ENCOUNTER 2018-01-22 12:35 | Emergency (ER) | payer SELFPAY ==
[~2018-01-22] VITALS: Ht 172.7 cm; Wt 57.0 kg
[~2018-01-22 12:35] MED LIST changes: -BENZ100 PO; -CLIN150C14 PO; -LEVA750T9 PO; -PENI500T PO; +PERM5CRE11 TOPICAL; -PRED-503 PO; -TRIAM.1%T TOPICAL; -VENTAER INH; -WALKER WHEELS/F1 MIS
[2018-01-22 12:42] VITALS: BP 150/77; PULSE 102; RESP 17; TEMP 97.8; O2SAT 100
[2018-01-22] MEDS ORDERED: BACT800T5 PO (13:34)
--- NOTE | 2018-01-22 13:37 | PD ---
HPI Chief Complaint: Skin Problem Time Seen by Provider: 13:17 Travel History International Travel<30 days: No Contact w/Intl Traveler<30days: No Traveled to known affect area: No History of Present Illness HPI 52-year-old female presents to the emergency room for evaluation of burning, itchy rash to her entire body for the past couple months. Rash started after she dyed her hair. It is burning. States it is spreading and most severe around her genitals. She came to the emergency room several weeks ago and was given prescriptions for Deltasone, permethrin, and Bactrim but had none of them filled. States she cannot afford them and could not afford transportation to store. She lost the prescription for Bactrim. She denies any chronic medical conditions or daily medications. Brother does have psoriasis. PFSH Past Medical History Asthma: Yes Autoimmune Disease: No Anxiety: Yes Depression: No Heart Rhythm Problems: No Cancer: No Cardiovascular Problems: No High Cholesterol: No Chemotherapy: No Chest Pain: Yes Congestive Heart Failure: No Diabetes: No Diminished Hearing: No Endocrine: No GERD: Yes Genitourinary: No Immune Disorder: No Musculoskeletal: No Neurologic: No Psychiatric: Yes Reproductive: No Respiratory: Yes Radiation Therapy: No Sickle Cell Disease: No Sleep Apnea: No Ulcer: Yes ?: Not Menopausal: Yes Past Surgical History AICD: No Arteriovenous Shunt: No Insulin Pump: No Joint Replacement: No Pacemaker: No Social History Alcohol Use: Yes (occ) Tobacco Use: Yes (/ PPD) Substance Use: Yes (thc) Allergies-Medications (Allergen,Severity, Reaction): Coded Allergies: codeine (Verified Allergy, Intermediate, Itching, 01/22/18) *MDRO Multi-Drug Resistant Organism (Verified Adverse Reaction, Unknown, 06/22/17) 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 morphine (Verified Adverse Reaction, Unknown, ITCHING, 01/22/18) Reported Meds & Prescriptions Reported Meds & Active Scripts Active Bactrim DS (Sulfamethoxazole-Trimethoprim) 800-160 Mg Tab 1 Tab PO BID 10 Days Elimite Topical (Permethrin) 5% Cream 1 Applic TOPICAL ONCE Review of Systems Except as stated in HPI: all other systems reviewed are Neg Physical Exam Narrative GENERAL: Well-nourished, well-developed female no acute distress. Afebrile. Ambulatory. SKIN: Focused skin assessment warm/dry. Significant erythematous, raised, plaques to the entire back, buttocks, abdomen, and extremities. There is a large, raised, erythematous, excoriated area on the neck and around the ears. No impetiginization. HEAD: Normocephalic. EYES: No scleral icterus. No injection or drainage. NECK: Supple, trachea midline. No JVD or lymphadenopathy. CARDIOVASCULAR: Regular rate and rhythm without murmurs, gallops, or rubs. RESPIRATORY: Breath sounds equal bilaterally. No accessory muscle use. PSYCHIATRIC: No delusional thought processes. No hallucinations. Data Data Last Documented VS Vital Signs Date Time Temp Pulse Resp B/P (MAP) Pulse Ox O2 Delivery O2 Flow Rate FiO2 01/22/18 12:42 97.8 102 17 150/77 (101) 100 Orders Orders Dexamethasone Inj (Decadron Inj) (01/22/18 13:45) Triamcinolone 0.1% Oint (Aristocort 0.1% (01/22/18 13:45) MDM Medical Decision Making Medical Screen Exam Complete: Yes Emergency Medical Condition: Yes Medical Record Reviewed: Yes Differential Diagnosis Psoriasis, scabies, cellulitis, allergic reaction Narrative Course 52-year-old female presents to the emergency room for evaluation of severe, itchy rash that is ongoing for the past few months. States it started after she dyed her hair. She came here previously for it and was given prescriptions for permethrin, Bactrim, and prednisone. States she did not have any of them filled because she cannot afford the medications or transportation. Since then her symptoms have been worsening. Physical exam reveals significant, generalized, erythematous, excoriated, raised plaques to the entire thorax. Mild symptoms on the upper and lower extremities. Significant symptoms behind the neck and on the ears. While history is consistent with allergic reaction, I suspect this is more related to psoriasis. Patient's brother has psoriasis. Last time patient was here she had the neck wounds cultured and it was susceptible to Bactrim. Patient was told to take the Bactrim as directed. The areas were thoroughly covered with triamcinolone cream and patient was educated on proper use. She was told to follow-up with a primary care physician or return for worsening symptoms. She understands and agrees to plan. Diagnosis Primary Impression: Rash and nonspecific skin eruption Additional Instructions: Rest and drink plenty of fluids. Apply cream twice daily. Bactrim as directed, until gone. Follow-up with a primary care physician. Return to the emergency room for worsening symptoms. Med/Other Pt SpecificInfo: Prescription(s) given Scripts Sulfamethoxazole-Trimethoprim (Bactrim DS) 800-160 Mg Tab 1 TAB PO BID for Infection for 10 Days, #20 TAB 0 Refills Prov: Florencio Sanders MD 01/22/18 Disposition: 01 DISCHARGE HOME Condition: Stable Coleen Almanzar January 22, 2018 13:37
[2018-01-22] MEDS ORDERED: TRIAMCINOLONE ACETONIDE 0.1% OINT 15 GM TUBE TOPICAL ONE (13:45)
[2018-01-22] MEDS ORDERED: DEXAMETHASONE SOD PHOS 20 MG/5 ML VIAL IM ONE (13:45)
== END 2018-01-22 14:00 | disposition home or self-care (01) ==
LOC: NEPK 12:35
DX: R21 Rash and other nonspecific skin eruption (principal); F17.200 Nicotine dependence, unspecified, uncomplicated
CPT/HCPCS: 96372; 99283; J1100

== ENCOUNTER 2018-04-22 14:07 | Observation (INO) ==
--- NOTE | 2018-04-22 15:32 | ED ---
HPI General Chief complaint: Respiratory Symptoms Stated complaint: SOB Time Seen by Provider: 04/22/18 15:19 Source: patient Mode of arrival: ambulatory Limitations: no limitations History of Present Illness HPI narrative: 52yo F presents to the ED with c/o sob and cough for weeks. States she started having right sided chest and rib pain today. Pain is worst with movement, breathing and cough. Pain is sharp, constant and radiates from right chest to right upper back. +Cig smoking. +Nausea, vomiting, diarrhea. Denies any fever, abdominal pain, trauma, fall, focal weakness or numbness. Pt also complains of right calf pain for a few days. Denies any history of PE/DVT , hemoptysis, recent surgery. Related Data Home Medications Medication Instructions Recorded Confirmed No Known Home Medications 04/22/18 04/22/18 Previous Rx's Medication Instructions Recorded albuterol sulfate [Ventolin HFA] 2 puff INHALATION Q4-6H PRN #1 04/24/18 inhaler azithromycin 500 mg PO DAILY 3 Days #6 tab 04/24/18 cefuroxime axetil 500 mg PO Q12H 5 Days #20 tab 04/24/18 Allergies Allergy/AdvReac Type Severity Reaction Status Date / Time codeine Allergy Intermediate Itching Verified 01/22/18 12:43 morphine AdvReac Unknown ITCHING Verified 01/22/18 12:43 *MDRO Multi-Drug Resistant AdvReac Unknown Uncoded 06/22/17 12:55 Organism Review of Systems ROS Unobtainable All other systems reviewed negative except as stated in HPI [facility] Medical History Medical History Patient denies medical problems (Acute) Surgical History Surgical History No history of previous surgery (Acute) Family History Family History Other CAD (coronary artery disease) Social History Social History Substance History: Active Abuse Smoking Status: Current every day smoker Tobacco Type: Cigarettes How Often Do You Have a Drink Containing Alcohol: 2 to 3 times a week Recent Travel in [place] within the Last 8 Weeks: No Recent Out of Country Travel within the Last 8 Weeks: No Substance Abuse Detail Marijuana: Substance Use Status: Active Route Used Substance Abuse: Inhalation Reason for Use: Get High Immunization History Tetanus Immunization: Unsure Hx Influenza Vaccine This Season: No Exam Narrative Exam Narrative: GENERAL: 52yo F in mild distress. SKIN: Focused skin assessment warm/dry. HEAD: Atraumatic. Normocephalic. EYES: Pupils equal and round. No scleral icterus. No injection or drainage. ENT: No nasal bleeding or discharge. Mucous membranes pink and moist. NECK: Trachea midline. No JVD. CARDIOVASCULAR: Regular rate and rhythm. No murmur appreciated. RESPIRATORY: No accessory muscle use. Clear to auscultation. Breath sounds equal bilaterally. GASTROINTESTINAL: Abdomen soft, non-tender, nondistended. MUSCULOSKELETAL: +TTP right ribs diffusely. No crepitus. RLE: +TTP right calf but no edema or erythema. No obvious deformities. No clubbing. No cyanosis. No edema. NEUROLOGICAL: Awake and alert. No obvious cranial nerve deficits. Motor grossly within normal limits. Normal speech. PSYCHIATRIC: Appropriate mood and affect; insight and judgment normal. Course Initial Documented Vital Signs Temperature 98.8 F 04/22/18 15:11 Pulse Rate 110 H 04/22/18 15:11 Respiratory Rate 16 04/22/18 15:11 Blood Pressure 127/64 04/22/18 15:11 Pulse Oximetry 97 04/22/18 15:11 Last Documented Vital Signs Temperature 98.5 F 04/24/18 12:00 Pulse Rate 85 04/24/18 15:38 Respiratory Rate 14 04/24/18 15:38 Blood Pressure 166/77 H 04/24/18 12:00 Pulse Oximetry 97 04/24/18 12:00 Medical Decision Making [facility] Narrative Medical decision making narrative: 52yo F with c/o sob and cough for a few weeks. Said she is having right sided chest pain today. Also right calf pain for a few days. Labs reviewed, no leukocytosis. Troponin negative. BNP mildly elevated at 136. AST elevated at 94. Pt does drink alcohol daily. Right leg US showed no DVT. Xray right rib and CXR showed minimal density right lower lobe could be infiltrate. Pt is a cig smoker and has been coughing and feeling sob so will cover with antibiotics. D-dimer elevated at 0.94, will do CTA to r/o PE. CTA showed no PE. Subsegmental consolidation right upper lobe and patchy areas. Medial lower lungs with associated nonspecific mediastinal nan enlargement. Pt is tachycardic in the 110s. Pt given 2 liters of NS IVF and is still tachycardic at 110s-115. Pt with nausea, vomiting and diarrhea as well, may be alcohol withdrawal so given ativan 1mg IV. Pt is homeless, has upper lobe consolidation and bilateral medial infiltrates so will admit for IV antibiotics. Will place on airborne precaution as well. Discussed with Dr. Chiang and accepted to her service. Differential Diagnosis Differential Diagnosis: Pneumonia vs. anxiety vs. DVT vs. PE vs. rib contusion Lab Data Result diagrams: 04/24/18 09:15 04/24/18 09:15 Lab Results 04/22/18 04/22/18 04/22/18 Range/Units 15:25 15:25 15:25 WBC 9.4 (4.0-11.0) th/mm3 RBC 3.52 L (4.00-5.30) mil/mm3 Hgb 11.8 (11.6-15.3) gm/dL Hct 34.9 L (35.0-46.0) % MCV 99.3 (80.0-100.0) fL MCH 33.6 (27.0-34.0) pg MCHC 33.8 (32.0-36.0) % RDW 13.3 (11.6-17.2) % Plt Count 164 (150-450) th/mm3 MPV 8.1 (7.0-11.0) fL Neut % (Auto) 74.8 H (16.0-70.0) % Lymph % (Auto) 11.9 (9.0-44.0) % Smyth % (Auto) 12.0 H (0.0-8.0) % Eos % (Auto) 0.4 (0.0-4.0) % Baso % (Auto) 0.9 (0.0-2.0) % Neut # (Auto) 7.0 (1.8-7.7) th/mm3 Lymph # (Auto) 1.1 (1.0-4.8) th/mm3 Smyth # (Auto) 1.1 H (0.0-0.9) th/mm3 Eos # (Auto) 0.0 (0.0-0.4) th/mm3 Baso # (Auto) 0.1 (0.0-0.2) th/mm3 WBC Differential . Differential Comment Auto diff final PT 11.0 (9.8-11.6) sec INR 1.1 Ratio APTT 30.6 H (24.3-30.1) sec D-Dimer Quant (PE/DVT) (0.00-0.50) mg/L FEU Sodium 135 L (136-145) meq/L Potassium 3.9 (3.5-5.1) meq/L Chloride 102 (98-107) meq/L Carbon Dioxide 22.9 (21.0-32.0) meq/L Anion Gap 10 (5-15) meq/L BUN 8 (7-18) mg/dL Creatinine 0.75 (0.50-1.00) mg/dL Estimated GFR 82 L (>89) mL/min Random Glucose 74 (74-106) mg/dL Hemoglobin A1c (4.3-6.0) % Calcium 8.7 (8.5-10.1) mg/dL Phosphorus (2.5-4.9) mg/dL Magnesium 1.6 (1.5-2.5) mg/dL Total Bilirubin 0.6 (0.2-1.0) mg/dL AST 94 H (15-37) U/L ALT 49 (10-53) U/L Alkaline Phosphatase 112 (45-117) U/L Troponin I Less than 0.02 L (0.02-0.05) ng/mL B-Natriuretic Peptide (0-100) pg/mL Total Protein 9.1 H (6.4-8.2) g/dL Albumin 2.8 L (3.4-5.0) g/dL Triglycerides (42-150) mg/dL Cholesterol (120-200) mg/dL LDL Cholesterol, Calc (0-99) mg/dL HDL Cholesterol (40.0-60.0) mg/dL Cholesterol/HDL Ratio Ratio TSH (0.358-3.740) uIU/mL Free T4 (0.76-1.46) ng/dL Stl C.difficile Tox PCR (Negative) St C. diff Tox Epid 027 (Negative) M.tuberculosis DNA (PCR) (Not Detect) 04/22/18 04/22/18 04/23/18 Range/Units 15:25 15:25 15:40 WBC 13.6 H (4.0-11.0) th/mm3 RBC 3.29 L (4.00-5.30) mil/mm3 Hgb 11.1 L (11.6-15.3) gm/dL Hct 32.6 L (35.0-46.0) % MCV 98.9 (80.0-100.0) fL MCH 33.8 (27.0-34.0) pg MCHC 34.2 (32.0-36.0) % RDW 12.8 (11.6-17.2) % Plt Count 147 L (150-450) th/mm3 MPV 8.5 (7.0-11.0) fL Neut % (Auto) 76.5 H (16.0-70.0) % Lymph % (Auto) 10.8 (9.0-44.0) % Smyth % (Auto) 12.3 H (0.0-8.0) % Eos % (Auto) 0.1 (0.0-4.0) % Baso % (Auto) 0.3 (0.0-2.0) % Neut # (Auto) 10.4 H (1.8-7.7) th/mm3 Lymph # (Auto) 1.5 (1.0-4.8) th/mm3 Smyth # (Auto) 1.7 H (0.0-0.9) th/mm3 Eos # (Auto) 0.0 (0.0-0.4) th/mm3 Baso # (Auto) 0.0 (0.0-0.2) th/mm3 WBC Differential . Differential Comment Auto diff final PT (9.8-11.6) sec INR Ratio APTT (24.3-30.1) sec D-Dimer Quant (PE/DVT) 0.94 H (0.00-0.50) mg/L FEU Sodium (136-145) meq/L Potassium (3.5-5.1) meq/L Chloride (98-107) meq/L Carbon Dioxide (21.0-32.0) meq/L Anion Gap (5-15) meq/L BUN (7-18) mg/dL Creatinine (0.50-1.00) mg/dL Estimated GFR (>89) mL/min Random Glucose (74-106) mg/dL Hemoglobin A1c (4.3-6.0) % Calcium (8.5-10.1) mg/dL Phosphorus (2.5-4.9) mg/dL Magnesium (1.5-2.5) mg/dL Total Bilirubin (0.2-1.0) mg/dL AST (15-37) U/L ALT (10-53) U/L Alkaline Phosphatase (45-117) U/L Troponin I (0.02-0.05) ng/mL B-Natriuretic Peptide 136 H (0-100) pg/mL Total Protein (6.4-8.2) g/dL Albumin (3.4-5.0) g/dL Triglycerides (42-150) mg/dL Cholesterol (120-200) mg/dL LDL Cholesterol, Calc (0-99) mg/dL HDL Cholesterol (40.0-60.0) mg/dL Cholesterol/HDL Ratio Ratio TSH (0.358-3.740) uIU/mL Free T4 (0.76-1.46) ng/dL Stl C.difficile Tox PCR (Negative) St C. diff Tox Epid 027 (Negative) M.tuberculosis DNA (PCR) (Not Detect) 04/23/18 04/23/18 04/23/18 Range/Units 15:40 15:45 20:15 WBC (4.0-11.0) th/mm3 RBC (4.00-5.30) mil/mm3 Hgb (11.6-15.3) gm/dL Hct (35.0-46.0) % MCV (80.0-100.0) fL MCH (27.0-34.0) pg MCHC (32.0-36.0) % RDW (11.6-17.2) % Plt Count (150-450) th/mm3 MPV (7.0-11.0) fL Neut % (Auto) (16.0-70.0) % Lymph % (Auto) (9.0-44.0) % Smyth % (Auto) (0.0-8.0) % Eos % (Auto) (0.0-4.0) % Baso % (Auto) (0.0-2.0) % Neut # (Auto) (1.8-7.7) th/mm3 Lymph # (Auto) (1.0-4.8) th/mm3 Smyth # (Auto) (0.0-0.9) th/mm3 Eos # (Auto) (0.0-0.4) th/mm3 Baso # (Auto) (0.0-0.2) th/mm3 WBC Differential Differential Comment PT (9.8-11.6) sec INR Ratio APTT (24.3-30.1) sec D-Dimer Quant (PE/DVT) (0.00-0.50) mg/L FEU Sodium 135 L (136-145) meq/L Potassium 3.2 L (3.5-5.1) meq/L Chloride 98 (98-107) meq/L Carbon Dioxide 28.8 (21.0-32.0) meq/L Anion Gap 8 (5-15) meq/L BUN 10 (7-18) mg/dL Creatinine 0.77 (0.50-1.00) mg/dL Estimated GFR 79 L (>89) mL/min Random Glucose 95 (74-106) mg/dL Hemoglobin A1c (4.3-6.0) % Calcium 8.3 L (8.5-10.1) mg/dL Phosphorus (2.5-4.9) mg/dL Magnesium (1.5-2.5) mg/dL Total Bilirubin (0.2-1.0) mg/dL AST (15-37) U/L ALT (10-53) U/L Alkaline Phosphatase (45-117) U/L Troponin I (0.02-0.05) ng/mL B-Natriuretic Peptide (0-100) pg/mL Total Protein (6.4-8.2) g/dL Albumin (3.4-5.0) g/dL Triglycerides (42-150) mg/dL Cholesterol (120-200) mg/dL LDL Cholesterol, Calc (0-99) mg/dL HDL Cholesterol (40.0-60.0) mg/dL Cholesterol/HDL Ratio Ratio TSH (0.358-3.740) uIU/mL Free T4 (0.76-1.46) ng/dL Stl C.difficile Tox PCR Negative (Negative) St C. diff Tox Epid 027 Negative (Negative) M.tuberculosis DNA (PCR) Not detected (Not Detect) 04/24/18 04/24/18 04/24/18 Range/Units 09:15 09:15 09:15 WBC 5.2 D (4.0-11.0) th/mm3 RBC 2.98 L (4.00-5.30) mil/mm3 Hgb 10.0 L (11.6-15.3) gm/dL Hct 29.2 L (35.0-46.0) % MCV 98.2 (80.0-100.0) fL MCH 33.7 (27.0-34.0) pg MCHC 34.3 (32.0-36.0) % RDW 12.5 (11.6-17.2) % Plt Count 124 L (150-450) th/mm3 MPV 8.8 (7.0-11.0) fL Neut % (Auto) 69.7 (16.0-70.0) % Lymph % (Auto) 18.7 (9.0-44.0) % Smyth % (Auto) 10.6 H (0.0-8.0) % Eos % (Auto) 0.5 (0.0-4.0) % Baso % (Auto) 0.5 (0.0-2.0) % Neut # (Auto) 3.7 (1.8-7.7) th/mm3 Lymph # (Auto) 1.0 (1.0-4.8) th/mm3 Smyth # (Auto) 0.6 (0.0-0.9) th/mm3 Eos # (Auto) 0.0 (0.0-0.4) th/mm3 Baso # (Auto) 0.0 (0.0-0.2) th/mm3 WBC Differential . Differential Comment Auto diff final PT (9.8-11.6) sec INR Ratio APTT (24.3-30.1) sec D-Dimer Quant (PE/DVT) (0.00-0.50) mg/L FEU Sodium 137 (136-145) meq/L Potassium 3.7 (3.5-5.1) meq/L Chloride 105 (98-107) meq/L Carbon Dioxide 21.2 (21.0-32.0) meq/L Anion Gap 11 (5-15) meq/L BUN 11 (7-18) mg/dL Creatinine 0.63 (0.50-1.00) mg/dL Estimated GFR Greater than 89 (>89) mL/min Random Glucose 87 (74-106) mg/dL Hemoglobin A1c 4.5 (4.3-6.0) % Calcium 8.5 (8.5-10.1) mg/dL Phosphorus 2.9 (2.5-4.9) mg/dL Magnesium 1.3 L (1.5-2.5) mg/dL Total Bilirubin 0.4 (0.2-1.0) mg/dL AST 77 H (15-37) U/L ALT 35 (10-53) U/L Alkaline Phosphatase 73 (45-117) U/L Troponin I (0.02-0.05) ng/mL B-Natriuretic Peptide (0-100) pg/mL Total Protein 7.1 D (6.4-8.2) g/dL Albumin 2.2 L D (3.4-5.0) g/dL Triglycerides 79 (42-150) mg/dL Cholesterol 109 L (120-200) mg/dL LDL Cholesterol, Calc 49 (0-99) mg/dL HDL Cholesterol 44.6 (40.0-60.0) mg/dL Cholesterol/HDL Ratio 2.44 Ratio TSH 1.180 (0.358-3.740) uIU/mL Free T4 1.37 (0.76-1.46) ng/dL Stl C.difficile Tox PCR (Negative) St C. diff Tox Epid 027 (Negative) M.tuberculosis DNA (PCR) (Not Detect) Imaging Data Radiologist's impression: Ribs X-Ray 04/22/18 15:26 CONCLUSION: 1. Minimal density right lower lobe could be infiltrate. 2. Bilateral old rib fractures. Venous Doppler Study 04/22/18 15:26 CONCLUSION: 1. The study is negative for lower extremity deep venous thrombosis. Chest CTA 04/22/18 16:56 CONCLUSION: 1. The study is negative for pulmonary embolism. 2. Subsegmental consolidation right upper lobe and patchy areas. The medial lower lungs with associated nonspecific middle mediastinal nan enlargement. ECG Data EKG Prior to Arrival: No Interpretation: NSR 95bpm. Normal axis. HI interval 125ms. ST depression V5, V6. Discharge Plan Discharge Disposition Patient Disposition: 01 Discharge Home Discharge Condition Condition: Stable Discharge Order Discharge Orders: Discharge Order (Routine); Ordered 04/24/18 Ordered By: Kaylee Contreras Discharge Details Anticipated Discharge Date: 04/24/18 Physicians Team ED Provider: Chelsea Mirza Primary Care Provider: Primary Care Physici,No Attending Provider: Morgan Chadwick Status ED Status: Left Department Discharge Information Discharge Date/Time: 04/23/18 01:00
[2018-04-22 16:00] LABS: Baso # (Auto) 0.1 th/mm3 (0.0-0.2); Baso % (Auto) 0.9 % (0.0-2.0); Eos % (Auto) 0.4 % (0.0-4.0); Hematocrit 34.9 % (35.0-46.0); Hemoglobin 11.8 gm/dL (11.6-15.3); Lymph # (Auto) 1.1 th/mm3 (1.0-4.8); Lymph % (Auto) 11.9 % (9.0-44.0); Mean Corpuscular HGB Conc 33.8 % (32.0-36.0); Mean Corpuscular Hemoglobin 33.6 pg (27.0-34.0); Mean Corpuscular Volume 99.3 fL (80.0-100.0); Mean Platelet Volume 8.1 fL (7.0-11.0); Mono # (Auto) 1.1 th/mm3 (0.0-0.9); Neut % (Auto) 74.8 % (16.0-70.0); Platelet Count 164 th/mm3 (150-450); Red Blood Count 3.52 mil/mm3 (4.00-5.30); Red Cell Distribution Width 13.3 % (11.6-17.2); White Blood Count 9.4 th/mm3 (4.0-11.0)
[2018-04-22 16:08] LABS: Activated Partial Thrombo Time 30.6 sec (24.3-30.1); INR 1.1 Ratio
--- NOTE | 2018-04-22 16:09 | XR ---
EXAM DATE: 04/22/2018 3:59 PM EDT AGE/SEX: 52 years / Female INDICATIONS: Right rib pain with no known injury. CLINICAL DATA: This is the patient's initial encounter. Patient reports that signs and symptoms have been present for 1 day and indicates a pain score of 10/10. MEDICAL/SURGICAL HISTORY: . Previous bilateral rib fractures. None. COMPARISON: [facility] – [place], CHEST PA & LAT, 09/14/2017. . FINDINGS: There is no evidence of displaced fracture. No destructive lesions or areas of periosteal thickening are seen. Old rib fractures bilaterally. Expiratory view of the chest is negative for pneumothorax. Minimal density right lower lobe. The mediastinal structures are midline. CONCLUSION: 1. Minimal density right lower lobe could be infiltrate. 2. Bilateral old rib fractures. Electronically signed by: Ulises Vickers MD 04/22/2018 4:08 PM EDT
--- NOTE | 2018-04-22 16:33 | US ---
EXAM DATE: 04/22/2018 4:29 PM EDT AGE/SEX: 52 years / Female INDICATIONS: Right leg swelling and pain. CLINICAL DATA: This is the patient's initial encounter. Patient reports that signs and symptoms have been present for 1 week and indicates a pain score of 5/10. MEDICAL/SURGICAL HISTORY: . Shortness of breath. Edema. None. COMPARISON: No prior exams available for comparison. TECHNIQUE: Venous ultrasound of both lower extremities was performed from the inguinal ligament to t he proximal calf. Real-time, color Doppler and spectral tracing, compression and augmentation techni ques were used. FINDINGS: Normal compression of the deep venous system from the inguinal region to the proximal calf . No echogenic clot is seen. Normal response of the venous system to augmentation and respiration. CONCLUSION: 1. The study is negative for lower extremity deep venous thrombosis. Electronically signed by: Edward Che MD 04/22/2018 4:32 PM EDT
[2018-04-22 16:37] LABS: Alkaline Phosphatase 112 U/L (45-117); Total Protein 9.1 g/dL (6.4-8.2)
[2018-04-22 16:39] LABS: Alanine Aminotransferase 49 U/L (10-53); Albumin 2.8 g/dL (3.4-5.0); Anion Gap 10 meq/L (5-15); Aspartate Aminotransferase 94 U/L (15-37); Blood Urea Nitrogen 8 mg/dL (7-18); Calcium 8.7 mg/dL (8.5-10.1); Carbon Dioxide 22.9 meq/L (21.0-32.0); Chloride 102 meq/L (98-107); Glomerular Filtration Rate 82 mL/min (>89); Glucose,Random 74 mg/dL (74-106); Magnesium 1.6 mg/dL (1.5-2.5); Potassium 3.9 meq/L (3.5-5.1); Sodium 135 meq/L (136-145)
[2018-04-22] MEDS ORDERED: Azithromycin 250 MG Tablet PO ONE (17:12)
--- NOTE | 2018-04-22 18:39 | CT ---
EXAM DATE: 04/22/2018 6:28 PM EDT AGE/SEX: 52 years / Female INDICATIONS: Right sided chest pain and cough; rule out pulmonary embolus. CLINICAL DATA: This is the patient's initial encounter. Patient reports that signs and symptoms have been present for 1 week and indicates a pain score of 6/10. MEDICAL/SURGICAL HISTORY: None. None. RADIATION DOSE: 5.06 CTDI (mGy) COMPARISON: [facility], CHEST PA & LAT, 09/14/2017. [facility], RIBS RIGHT MIN 3V W EXP CHEST, 04/22/2018. . TECHNIQUE: Volumetric scanning was performed using a multi-row detector CT scanner during bolus infu moira of 50 ml Omnipaque 350 (iohexol) nonionic water-soluble contrast as a single exam dose. The melida a was post processed with a variety of visualization algorithms including full volume maximum intensi ty projection and sliding thin slab reformation. Using automated exposure control and adjustment of t he mA and/or kV according to patient size, radiation dose was kept as low as reasonably achievable to obtain optimal diagnostic quality images. DICOM format image data is available electronically for r eview and comparison. FINDINGS: Pulmonary Arteries: No filling defects are seen in the pulmonary arteries out to the subsegmental ve ssels. The left and right pulmonary arteries are normal in diameter. Lung: Dense area of subsegmental consolidation lateral segment of right upper lobe measuring in exce ss of 4 cm and containing multiple air alveolar grams. Some patchy areas of nonconsolidative infiltra te are present in the medial bilaterally. Bilateral upper lung subpleural bulla and centrilobular emp hysema. Effusion: None. Mediastinum: There are several enlarged middle mediastinal lymph nodes including precarinal measurin g 2.0 cm and subcarinal measuring 1.4 cm. Other: The axilla is unremarkable. CONCLUSION: 1. The study is negative for pulmonary embolism. 2. Subsegmental consolidation right upper lobe and patchy areas. The medial lower lungs with associa ish nonspecific middle mediastinal nan enlargement. Electronically signed by: Henry Campos MD 04/22/2018 6:37 PM EDT
[2018-04-22] MEDS ORDERED: Sod Chloride 0.9% Inj 1,000 ML IV.SIG ONE ×2 (19:05→20:03)
[2018-04-22] MEDS ORDERED: guaiFENesin/Dextromethorphan 200 MG/20 MG 10 ML UDC PO PRN (23:27)
[2018-04-22] MEDS ORDERED: Zolpidem Tartrate 5 MG Tablet PO PRN (23:29)
[2018-04-22] MEDS ORDERED: Acetaminophen 325 MG Tablet PO PRN (23:29)
[2018-04-22] MEDS ORDERED: Bisacodyl 10 MG Supp RECTAL PRN (23:29)
[2018-04-22] MEDS: Heparin - SQ 10,000 UNITS/ML Vial SQ SCH (23:57)
--- NOTE | 2018-04-23 00:10 | P.HP ---
History of Present Illness Service: [facility] Primary Care Physician: No Primary Care Physician History of Present Illness: 52-year-old female with no significant past medical history presents the emergency department with multiple complaints. The patient states she has had nausea/vomiting/diarrhea that began earlier yesterday. She states she has also had a cough productive of green sputum and shortness of breath and chest pain that is worse with inspiration. She endorses a subjective fever. Review of Systems Denies blurry vision, otorrhea, rhinorrhea Denies muscle pain Denies focal weakness No rashes PMFSH - History History Provided By: Patient - Medical History Medical History: Medical History (Last Updated 04/22/18 @ 15:26 by Yudelka Garrett) Patient denies medical problems - Surgical History Surgical History: Surgical History (Last Updated 04/22/18 @ 15:26 by Yudelka Garrett) No history of previous surgery - Family History Family History: Family History (Last Updated 04/23/18 @ 00:06 by Hillary Chiang MD) Other CAD (coronary artery disease) - Tobacco History Tobacco Use In Past 30 Days: Yes Smoking Status: Current every day smoker Tobacco Type: Cigarettes - Alcohol History How Often Do You Have a Drink Containing Alcohol: 2 to 3 times a week - Substance Use History Substance History: Active Abuse - Substance Use Type Marijuana Status: Active Route Used: Inhalation Reason for Use: Get High - Travel History Recent Travel in the [place] Within the Last 8 Weeks: No Recent Travel Out of the Country Within the Last 8 Weeks: No - Immunization History Tetanus Immunization: Unsure Hx Influenza Vaccine This Season: No Medications and Allergies Active Medications: Active Medications Acetaminophen (Tylenol) 650 mg PO Q6H PRN PRN Reason: Temp > 100.4 Al Hydroxide/Mg Hydroxide (Milk Of Magnesia Liq) 30 ml PO Q12H PRN PRN Reason: Mild Constipation Albuterol (Duoneb Neb (Alejandrina)) 1 ampul NEB Q6HR NEB ALEJANDRINA Albuterol (Duoneb Neb (Prn)) 1 ampul NEB Q4HR NEB PRN PRN Reason: SHORTNESS OF BREATH/WHEEZING Bisacodyl (Dulcolax Supp) 10 mg RECTAL DAILY PRN PRN Reason: SEVERE CONSITIPATION Guaifenesin/Dextromethorphan (Robitussin Dm 200/20 Mg/10 Ml Liq) 10 ml PO Q4H PRN PRN Reason: COUGH Heparin Sodium (Porcine) (Heparin Inj) 5,000 units SQ Q12H ALEJANDRINA Last Admin: 04/22/18 23:57 Dose: 5,000 units Azithromycin 500 mg/ Sodium (Chloride) 250 mls @ 250 mls/hr IV.SIG Q24H ALEJANDRINA Ceftriaxone Sodium 1,000 mg/ (Sodium Chloride) 100 mls @ 200 mls/hr IV.SIG Q24H ALEJANDRINA Lactulose (Lactulose Liq) 30 ml PO DAILY PRN PRN Reason: SEVERE CONSITIPATION Prochlorperazine Edisylate (Compazine Inj) 5 mg IV.PUSH Q4H PRN PRN Reason: NAUSEA OR VOMITING Sennosides (Senokot) 17.2 mg PO Q12H PRN PRN Reason: Moderate Constipation Sodium Chloride (Ns Flush) 2 ml IV.FLUSH BID ALEJANDRINA Sodium Chloride (Ns Flush) 2 ml IV.FLUSH PRN PRN PRN Reason: FLUSH AFTER USING IV ACCESS Zolpidem Tartrate (Ambien) 5 mg PO HS PRN PRN Reason: INSOMNIA Allergies Allergy/AdvReac Type Severity Reaction Status Date / Time codeine Allergy Intermediate Itching Verified 01/22/18 12:43 morphine AdvReac Unknown ITCHING Verified 01/22/18 12:43 *MDRO Multi-Drug Resistant AdvReac Unknown Uncoded 06/22/17 12:55 Organism Home Medications Medication Instructions Recorded Confirmed Type No Known Home Medications 04/22/18 04/22/18 History Exam Vital signs: Vital Signs 04/22/18 15:11 04/22/18 15:26 04/22/18 19:02 Temperature 98.8 F Pulse Rate 110 H 115 H Respiratory Rate 16 16 Blood Pressure 127/64 147/70 H Pulse Oximetry 97 95 96 04/22/18 19:57 04/22/18 23:53 Temperature 98.1 F Pulse Rate 110 H 102 H Respiratory Rate 16 Blood Pressure 112/51 L Pulse Oximetry 96 Intake & Output 04/22/18 04/22/18 04/23/18 06:59 18:59 06:59 Weight 63.503 kg Narrative: Gen.: No acute distress Head: Normocephalic. Atraumatic. EENT: Pupils equal round and reactive to light. Nose without drainage. Airway intact. Throat without injection. Cardiovascular: Regular rate and rhythm. No murmurs, rubs or gallops. Respiratory: Lungs clear to auscultation bilaterally. No wheezes or rhonchi. Abdomen: Soft, nontender, nondistended. No peritoneal signs. Musculoskeletal: No gross deformities. No edema. Skin: No obvious rashes or erythema. Neuro: Sensory and motor grossly intact. Cranial nerves II through XII grossly intact. Results - Labs CBC & Chem 7: 04/22/18 15:25 04/22/18 15:25 Labs: Laboratory Results - last 24 hr 04/22/18 04/22/18 04/22/18 15:25 15:25 15:25 WBC 9.4 RBC 3.52 L Hgb 11.8 Hct 34.9 L MCV 99.3 MCH 33.6 MCHC 33.8 RDW 13.3 Plt Count 164 MPV 8.1 Neut % (Auto) 74.8 H Lymph % (Auto) 11.9 [place] % (Auto) 12.0 H Eos % (Auto) 0.4 Baso % (Auto) 0.9 Neut # (Auto) 7.0 Lymph # (Auto) 1.1 [place] # (Auto) 1.1 H Eos # (Auto) 0.0 Baso # (Auto) 0.1 WBC Differential . Differential Comment Auto diff final PT 11.0 INR 1.1 APTT 30.6 H D-Dimer Quant (PE/DVT) Sodium 135 L Potassium 3.9 Chloride 102 Carbon Dioxide 22.9 Anion Gap 10 BUN 8 Creatinine 0.75 Estimated GFR 82 L Random Glucose 74 Calcium 8.7 Magnesium 1.6 Total Bilirubin 0.6 AST 94 H ALT 49 Alkaline Phosphatase 112 Troponin I Less than 0.02 L B-Natriuretic Peptide Total Protein 9.1 H Albumin 2.8 L 04/22/18 04/22/18 15:25 15:25 WBC RBC Hgb Hct MCV MCH MCHC RDW Plt Count MPV Neut % (Auto) Lymph % (Auto) [place] % (Auto) Eos % (Auto) Baso % (Auto) Neut # (Auto) Lymph # (Auto) [place] # (Auto) Eos # (Auto) Baso # (Auto) WBC Differential Differential Comment PT INR APTT D-Dimer Quant (PE/DVT) 0.94 H Sodium Potassium Chloride Carbon Dioxide Anion Gap BUN Creatinine Estimated GFR Random Glucose Calcium Magnesium Total Bilirubin AST ALT Alkaline Phosphatase Troponin I B-Natriuretic Peptide 136 H Total Protein Albumin - Imaging Impressions Ribs X-Ray 04/22/18 15:26 CONCLUSION: 1. Minimal density right lower lobe could be infiltrate. 2. Bilateral old rib fractures. Venous Doppler Study 04/22/18 15:26 CONCLUSION: 1. The study is negative for lower extremity deep venous thrombosis. Chest CTA 04/22/18 16:56 CONCLUSION: 1. The study is negative for pulmonary embolism. 2. Subsegmental consolidation right upper lobe and patchy areas. The medial lower lungs with associated nonspecific middle mediastinal nan enlargement. Caprini VTE Risk Assessment Caprini VTE Risk Assessment: No/Low Risk (score <= 1) Caprini Risk Assessment Model: Point Value = 1 Point Value = 2 Point Value = 3 Point Value = 5 Age 41-60 Minor surgery BMI > 25 kg/m2 Swollen legs Varicose veins or History of unexplained or recurrent spontaneous Oral contraceptives or hormone replacement Sepsis (< 1 month) Serious lung disease, including pneumonia (< 1 month) Abnormal pulmonary function Acute myocardial infarction Congestive heart failure (< 1 month) History of inflammatory bowel disease Medical patient at bed rest Age 61-74 Arthroscopic surgery Major open surgery (> 45 min) Laparoscopic surgery (> 45 min) Malignancy Confined to bed (> 72 hours) Immobilizing plaster cast Central venous access Age >= 75 History of VTE Family history of VTE Factor V Leiden Prothrombin [id number] Lupus anticoagulant Anticardiolipin antibodies Elevated serum homocysteine Heparin-induced thrombocytopenia Other congenital or acquired thrombophilia Stroke (< 1 month) Elective arthroplasty Hip, pelvis, or leg fracture Acute spinal cord injury (< 1 month) Prophylaxis Regimen: Total Risk Factor Score Risk Level Prophylaxis Regimen 0-1 Low Early ambulation 2 Moderate Order ONE of the following: *Sequential Compression Device (SCD) *Heparin 5000 units SQ BID 3-4 Higher Order ONE of the following medications: *Heparin 5000 units SQ TID *Enoxaparin/Lovenox 40 mg SQ daily (WT < 150 kg, CrCl > 30 mL/min) *Enoxaparin/Lovenox 30 mg SQ daily (WT < 150 kg, CrCl > 10-29 mL/min) *Enoxaparin/Lovenox 30 mg SQ BID (WT < 150 kg, CrCl > 30 mL/min) AND/OR *Sequential Compression Device (SCD) 5 or more Highest Order ONE of the following medications: *Heparin 5000 units SQ TID (Preferred with Epidurals) *Enoxaparin/Lovenox 40 mg SQ daily (WT < 150 kg, CrCl > 30 mL/min) *Enoxaparin/Lovenox 30 mg SQ daily (WT < 150 kg, CrCl > 10-29 mL/min) *Enoxaparin/Lovenox 30 mg SQ BID (WT < 150 kg, CrCl > 30 mL/min) AND *Sequential Compression Device (SCD) Assessment and Plan - Plan Assessment/plan: 1. Community-acquired pneumonia Chest CT significant for subsegmental consolidation in the right upper lobe Rocephin/azithromycin Sputum culture pending 2. Nausea/vomiting/diarrhea Resolved at this time Zofran/Compazine If symptoms return, consider stool studies FEN Regular diet Electrolytes: Monitor and replete as needed
[2018-04-23] MEDS: guaiFENesin 600 MG ER Tablet PO SCH ×2 (08:22→21:42)
[2018-04-23] MEDS: Heparin - SQ 10,000 UNITS/ML Vial SQ SCH ×2 (12:38→23:59)
--- NOTE | 2018-04-23 15:12 | P.PN ---
Subjective Interval history: Follow-up visit for community-acquired pneumonia, nausea, vomiting and diarrhea. Patient is seen and examined sitting up in bed, reports she is not feeling good today. Continues to complain of ongoing productive cough, states that sputum color is green, shortness of breath at times none at the moment. Patient also complains of rib pain with coughing, night sweats and chills. She endorses nausea, some vomiting today with ongoing diarrhea. She reports she has had about 14 bowel movement since yesterday night, drinking some fluids but not much due to ongoing nausea. She denies any headaches, dizziness, or abdominal pain. Physical Exam Vital signs: Vital Signs 04/22/18 15:26 04/22/18 19:02 04/22/18 19:57 Temperature Pulse Rate 115 H 110 H Respiratory Rate 16 Blood Pressure 147/70 H Pulse Oximetry 95 96 04/22/18 23:53 04/23/18 00:00 04/23/18 02:36 Temperature 36.7 C Pulse Rate 102 H 101 H 103 H Respiratory Rate 16 17 24 Blood Pressure 112/51 L 137/63 Pulse Oximetry 96 96 98 04/23/18 04:00 04/23/18 07:06 04/23/18 07:47 Temperature 37.1 C Pulse Rate 93 H 92 H 96 H Respiratory Rate 20 Blood Pressure 117/60 Pulse Oximetry 04/23/18 12:51 Temperature 36.9 C Pulse Rate Respiratory Rate 18 Blood Pressure 117/60 Pulse Oximetry 95 Intake & Output 04/22/18 04/23/18 04/23/18 18:59 06:59 18:59 Weight 63.503 kg Narrative: GENERAL: Well-nourished, well-developed female appears to be in no acute distress. SKIN: Warm and dry. HEAD: Atraumatic. Normocephalic. EYES: Pupils equal and round. No scleral icterus. No injection or drainage. ENT: No nasal bleeding or discharge. Mucous membranes pink and moist. NECK: Trachea midline. No JVD. CARDIOVASCULAR: Regular rate and rhythm. RESPIRATORY: No accessory muscle use. Breath sounds cleared but diminished at bases. breath sounds equal bilaterally. GASTROINTESTINAL: Abdomen soft, non-tender, nondistended. Hepatic and splenic margins not palpable. MUSCULOSKELETAL: Extremities without clubbing, cyanosis, or edema. No obvious deformities. NEUROLOGICAL: Awake and alert. No obvious cranial nerve deficits. Motor grossly within normal limits. Five out of 5 muscle strength in the arms and legs. Normal speech. PSYCHIATRIC: Appropriate mood and affect; insight and judgment normal. Results - Labs CBC & Chem 7: 04/22/18 15:25 04/22/18 15:25 Laboratory Results - last 24 hr 04/22/18 04/22/18 04/22/18 15:25 15:25 15:25 WBC 9.4 RBC 3.52 L Hgb 11.8 Hct 34.9 L MCV 99.3 MCH 33.6 MCHC 33.8 RDW 13.3 Plt Count 164 MPV 8.1 Neut % (Auto) 74.8 H Lymph % (Auto) 11.9 [place] % (Auto) 12.0 H Eos % (Auto) 0.4 Baso % (Auto) 0.9 Neut # (Auto) 7.0 Lymph # (Auto) 1.1 [place] # (Auto) 1.1 H Eos # (Auto) 0.0 Baso # (Auto) 0.1 WBC Differential . Differential Comment Auto diff final PT 11.0 INR 1.1 APTT 30.6 H D-Dimer Quant (PE/DVT) Sodium 135 L Potassium 3.9 Chloride 102 Carbon Dioxide 22.9 Anion Gap 10 BUN 8 Creatinine 0.75 Estimated GFR 82 L Random Glucose 74 Calcium 8.7 Magnesium 1.6 Total Bilirubin 0.6 AST 94 H ALT 49 Alkaline Phosphatase 112 Troponin I Less than 0.02 L B-Natriuretic Peptide Total Protein 9.1 H Albumin 2.8 L 04/22/18 04/22/18 15:25 15:25 WBC RBC Hgb Hct MCV MCH MCHC RDW Plt Count MPV Neut % (Auto) Lymph % (Auto) [place] % (Auto) Eos % (Auto) Baso % (Auto) Neut # (Auto) Lymph # (Auto) [place] # (Auto) Eos # (Auto) Baso # (Auto) WBC Differential Differential Comment PT INR APTT D-Dimer Quant (PE/DVT) 0.94 H Sodium Potassium Chloride Carbon Dioxide Anion Gap BUN Creatinine Estimated GFR Random Glucose Calcium Magnesium Total Bilirubin AST ALT Alkaline Phosphatase Troponin I B-Natriuretic Peptide 136 H Total Protein Albumin - Imaging Impressions Ribs X-Ray 04/22/18 15:26 CONCLUSION: 1. Minimal density right lower lobe could be infiltrate. 2. Bilateral old rib fractures. Venous Doppler Study 04/22/18 15:26 CONCLUSION: 1. The study is negative for lower extremity deep venous thrombosis. Chest CTA 04/22/18 16:56 CONCLUSION: 1. The study is negative for pulmonary embolism. 2. Subsegmental consolidation right upper lobe and patchy areas. The medial lower lungs with associated nonspecific middle mediastinal nan enlargement. Assessment and Plan - Plan 52-year-old female with past medical history significant for asthma, eczema, tobacco and alcohol abuse who presents to the emergency department with complaints of nausea, vomiting, diarrhea along with productive cough for green sputum. Community-acquired pneumonia -CTA of the chest with contrast negative for PE, segmental consolidation right upper lobe and patchy areas, medial lower lung with associated nonspecific middle mediastinal node enlargement. -Rib x-rays with minimal densities in the right lower lobe possible infiltrate, bilateral old rib fractures. -Continue Rocephin and azithromycin -Sputum culture yet to be collected, check AFB in sputum due to r/o TB - Discussed with ID surveillance department check M.Tuberculosis/RIF PCR for r/ o TB -Continue airborne precautions -Scheduled albuterol every 6 hours, as needed for shortness of breath or wheezing -Mucinex and as needed antitussive Nausea/vomiting/diarrhea -Patient with poor p.o. intake, continue following labs -Start normal saline for hydration, as needed antiemetics -Check stool for ova and parasite, C. difficile Tobacco abuse/alcohol abuse -Patient continues to smoke half a pack of cigarettes daily and reports she also continues to drink beer daily. -Last drink was yesterday, tobacco and alcohol cessation encouraged - CIWA DVT prophylaxis-subcu heparin Discussed Condition With: Discussed with patient, RN, infectious disease surveillance department, and .
[2018-04-23] MEDS ORDERED: Haloperidol Inj 5 MG/ML Ampul IV.PUSH PRN (15:15)
[2018-04-23] MEDS ORDERED: LORazepam 1 MG Tablet PO PRN (15:15)
[2018-04-23] MEDS: Sod Chloride 0.9% Inj 1,000 ML IV.CONT SCH (15:31)
[2018-04-23] MEDS ORDERED: Azithromycin Inj 500 MG in Sodium Chlor 0.9% Inj 250 ML IV.SIG SCH (16:00)
[2018-04-23 16:32] LABS: Baso % (Auto) 0.3 % (0.0-2.0); Eos % (Auto) 0.1 % (0.0-4.0); Hematocrit 32.6 % (35.0-46.0); Hemoglobin 11.1 gm/dL (11.6-15.3); Lymph # (Auto) 1.5 th/mm3 (1.0-4.8); Lymph % (Auto) 10.8 % (9.0-44.0); Mean Corpuscular HGB Conc 34.2 % (32.0-36.0); Mean Corpuscular Hemoglobin 33.8 pg (27.0-34.0); Mean Corpuscular Volume 98.9 fL (80.0-100.0); Mean Platelet Volume 8.5 fL (7.0-11.0); Mono # (Auto) 1.7 th/mm3 (0.0-0.9); Mono % (Auto) 12.3 % (0.0-8.0); Neut # (Auto) 10.4 th/mm3 (1.8-7.7); Neut % (Auto) 76.5 % (16.0-70.0); Platelet Count 147 th/mm3 (150-450); Red Blood Count 3.29 mil/mm3 (4.00-5.30); Red Cell Distribution Width 12.8 % (11.6-17.2); White Blood Count 13.6 th/mm3 (4.0-11.0)
[2018-04-23 16:52] LABS: Calcium 8.3 mg/dL (8.5-10.1); Carbon Dioxide 28.8 meq/L (21.0-32.0); Potassium 3.2 meq/L (3.5-5.1)
[2018-04-23] MEDS ORDERED: Potassium Chlor 20 mEq Premix 20 MEQ/100 ML PIGGYBACK IV.SIG SCH (18:45)
[2018-04-23] MEDS: Potassium Chlor 10 mEq Premix 10 MEQ/100 ML PIGGYBACK IV.SIG SCH ×3 (21:43→23:56)
--- NOTE | 2018-04-23 23:14 | ECG ---
Date Performed: 04/23/2018 Time Performed: 04:31:29 PTAGE: 52 years EKG: Sinus rhythm MODERATE ST DEPRESSION ABNORMAL ECG NO PREVIOUS TRACING Since the previous tracing, no significant change noted DOCTOR: Carlos Salinas Interpretating Date/Time 04/23/2018 23:12:43
--- NOTE | 2018-04-23 23:31 | ECG ---
Date Performed: 04/22/2018 Time Performed: 15:38:14 PTAGE: 52 years EKG: Sinus rhythm MILD ST DEPRESSION ABNORMAL ECG PREVIOUS TRACING : 10/24/2003 00.03 Since the previous tracing, no significant change noted DOCTOR: Carlos Salinas Interpretating Date/Time 04/23/2018 23:31:32
[2018-04-24] MEDS: Potassium Chlor 10 mEq Premix 10 MEQ/100 ML PIGGYBACK IV.SIG SCH (02:23)
[2018-04-24 10:41] LABS: Baso % (Auto) 0.5 % (0.0-2.0); Eos % (Auto) 0.5 % (0.0-4.0); Hematocrit 29.2 % (35.0-46.0); Lymph % (Auto) 18.7 % (9.0-44.0); Mean Corpuscular HGB Conc 34.3 % (32.0-36.0); Mean Corpuscular Hemoglobin 33.7 pg (27.0-34.0); Mean Corpuscular Volume 98.2 fL (80.0-100.0); Mean Platelet Volume 8.8 fL (7.0-11.0); Mono # (Auto) 0.6 th/mm3 (0.0-0.9); Mono % (Auto) 10.6 % (0.0-8.0); Neut # (Auto) 3.7 th/mm3 (1.8-7.7); Neut % (Auto) 69.7 % (16.0-70.0); Platelet Count 124 th/mm3 (150-450); Red Blood Count 2.98 mil/mm3 (4.00-5.30); Red Cell Distribution Width 12.5 % (11.6-17.2); White Blood Count 5.2 th/mm3 (4.0-11.0)
[2018-04-24 11:06] LABS: Albumin 2.2 g/dL (3.4-5.0); Anion Gap 11 meq/L (5-15); Aspartate Aminotransferase 77 U/L (15-37); Blood Urea Nitrogen 11 mg/dL (7-18); Calcium 8.5 mg/dL (8.5-10.1); Carbon Dioxide 21.2 meq/L (21.0-32.0); Chloride 105 meq/L (98-107); Glomerular Filtration Rate Greater Than 89 mL/min (>89); Glucose,Random 87 mg/dL (74-106); Magnesium 1.3 mg/dL (1.5-2.5); Potassium 3.7 meq/L (3.5-5.1); Sodium 137 meq/L (136-145)
[2018-04-24 11:07] LABS: Alanine Aminotransferase 35 U/L (10-53); Cholesterol 109 mg/dL (120-200); Phosphorus 2.9 mg/dL (2.5-4.9)
[2018-04-24] MEDS: Sod Chloride 0.9% Inj 1,000 ML IV.CONT SCH ×2 (11:14→11:15)
[2018-04-24 11:16] LABS: Alkaline Phosphatase 73 U/L (45-117); Chol/HDL Ratio 2.44 Ratio; Free T4 (Free Thyroxine) 1.37 ng/dL (0.76-1.46); HDL Cholesterol 44.6 mg/dL (40.0-60.0); LDL Cholesterol,Calculated 49 mg/dL (0-99); Total Protein 7.1 g/dL (6.4-8.2); Triglycerides 79 mg/dL (42-150)
[2018-04-24] MEDS: guaiFENesin 600 MG ER Tablet PO SCH (11:16)
[2018-04-24 13:07] VITALS: BP 166/77; TEMP 98.5; O2SAT 97
[2018-04-24] MEDS ORDERED: Mag Sulf 1 gm/100 ml Premix 100 ML IV.SIG SCH (14:00)
--- NOTE | 2018-04-24 14:21 | P.PN ---
Subjective Interval history: Follow-up for community-acquired pneumonia, nausea/vomiting/diarrhea. Patient reports feeling much better today. She states her cough has improved, now minimally productive with whiteyellow sputum. Denies fevers or chills overnight. Denies any chest pain. Nausea and vomiting has resolved. Diarrhea also much improved. She is tolerating oral intake. The patient feels ready for discharge. She is requesting assistance with obtaining antibiotic prescriptions. Physical Exam Vital signs: Vital Signs 04/23/18 16:47 04/23/18 19:58 04/23/18 20:00 Temperature 98.5 F 98.2 F Pulse Rate 88 85 93 H Respiratory Rate 16 20 20 Blood Pressure 116/58 L 134/63 Pulse Oximetry 97 96 97 04/24/18 00:00 04/24/18 04:00 04/24/18 08:00 Temperature 98.2 F 98.1 F Pulse Rate 78 84 108 H Respiratory Rate 18 18 Blood Pressure 115/84 150/70 H Pulse Oximetry 97 96 04/24/18 08:15 04/24/18 11:07 04/24/18 12:00 Temperature 98.5 F Pulse Rate 80 83 Respiratory Rate 20 18 Blood Pressure 166/77 H Pulse Oximetry 99 97 Intake & Output 04/23/18 04/24/18 04/24/18 18:59 06:59 18:59 Intake Total 300 / 300 900 / 900 Balance 300 / 300 900 / 900 Intake: IV 300 / 300 900 / 900 NS Inj 1,000 ML @ 100 mls/hr IV 900 / 900 .CONT .Q10H WENDI Rx#:[id number] KCl 10 mEq Premix Inj 10 meq In 300 / 300 100 ml @ 100 mls/hr IV.SIG Q1H WENDI Rx#:[id number] Other: # Voids 3 # Bowel Movements 1 Narrative: GENERAL: Well-nourished, well-developed middle-aged female patient in [facility]. Sitting upright in bed, eating lunch, appears comfortable. SKIN: Warm and dry. No rash. HEENT: Normocephalic. Atraumatic. Pupils equal and round. Mucous membranes pink and moist. NECK: Supple. Trachea midline. CARDIOVASCULAR: Regular rate and rhythm. No murmur appreciated. RESPIRATORY: No accessory muscle use. Clear to auscultation. Breath sounds equal bilaterally. GASTROINTESTINAL: Abdomen soft, non-tender, nondistended. Normoactive bowel sounds x4. MUSCULOSKELETAL: No obvious deformities. Extremities without clubbing, cyanosis , or edema. NEUROLOGICAL: Awake and alert. No obvious cranial nerve deficits. Motor grossly within normal limits. Moving all extremities spontaneously. Normal speech. PSYCHIATRIC: Appropriate mood and affect; insight and judgment normal. Results - Labs CBC & Chem 7: 04/24/18 09:15 04/24/18 09:15 Laboratory Results - last 24 hr 04/23/18 04/23/18 04/23/18 15:40 15:40 15:45 WBC 13.6 H RBC 3.29 L Hgb 11.1 L Hct 32.6 L MCV 98.9 MCH 33.8 MCHC 34.2 RDW 12.8 Plt Count 147 L MPV 8.5 Neut % (Auto) 76.5 H Lymph % (Auto) 10.8 [place] % (Auto) 12.3 H Eos % (Auto) 0.1 Baso % (Auto) 0.3 Neut # (Auto) 10.4 H Lymph # (Auto) 1.5 [place] # (Auto) 1.7 H Eos # (Auto) 0.0 Baso # (Auto) 0.0 WBC Differential . Differential Comment Auto diff final Sodium 135 L Potassium 3.2 L Chloride 98 Carbon Dioxide 28.8 Anion Gap 8 BUN 10 Creatinine 0.77 Estimated GFR 79 L Random Glucose 95 Calcium 8.3 L Phosphorus Magnesium Total Bilirubin AST ALT Alkaline Phosphatase Total Protein Albumin Triglycerides Cholesterol LDL Cholesterol, Calc HDL Cholesterol Cholesterol/HDL Ratio TSH Free T4 Stl C.difficile Tox PCR St C. diff Tox Epid 027 M.tuberculosis DNA (PCR) Not detected 04/23/18 04/24/18 04/24/18 20:15 09:15 09:15 WBC 5.2 D RBC 2.98 L Hgb 10.0 L Hct 29.2 L MCV 98.2 MCH 33.7 MCHC 34.3 RDW 12.5 Plt Count 124 L MPV 8.8 Neut % (Auto) 69.7 Lymph % (Auto) 18.7 [place] % (Auto) 10.6 H Eos % (Auto) 0.5 Baso % (Auto) 0.5 Neut # (Auto) 3.7 Lymph # (Auto) 1.0 [place] # (Auto) 0.6 Eos # (Auto) 0.0 Baso # (Auto) 0.0 WBC Differential . Differential Comment Auto diff final Sodium 137 Potassium 3.7 Chloride 105 Carbon Dioxide 21.2 Anion Gap 11 BUN 11 Creatinine 0.63 Estimated GFR Greater than 89 Random Glucose 87 Calcium 8.5 Phosphorus 2.9 Magnesium 1.3 L Total Bilirubin 0.4 AST 77 H ALT 35 Alkaline Phosphatase 73 Total Protein 7.1 D Albumin 2.2 L D Triglycerides 79 Cholesterol 109 L LDL Cholesterol, Calc 49 HDL Cholesterol 44.6 Cholesterol/HDL Ratio 2.44 TSH 1.180 Free T4 1.37 Stl C.difficile Tox PCR Negative St C. diff Tox Epid 027 Negative M.tuberculosis DNA (PCR) - Imaging Ribs X-Ray 04/22/18 15:26 CONCLUSION: 1. Minimal density right lower lobe could be infiltrate. 2. Bilateral old rib fractures. Venous Doppler Study 04/22/18 15:26 CONCLUSION: 1. The study is negative for lower extremity deep venous thrombosis. Chest CTA 04/22/18 16:56 CONCLUSION: 1. The study is negative for pulmonary embolism. 2. Subsegmental consolidation right upper lobe and patchy areas. The medial lower lungs with associated nonspecific middle mediastinal nan enlargement. Assessment and Plan - Plan 52-year-old female with past medical history significant for asthma, eczema, tobacco and alcohol abuse who presents to the emergency department with complaints of nausea, vomiting, diarrhea along with productive cough for green sputum. Community-acquired pneumonia -CTA of the chest with contrast negative for PE, segmental consolidation right upper lobe and patchy areas, medial lower lung with associated nonspecific middle mediastinal node enlargement. -Rib x-rays with minimal densities in the right lower lobe possible infiltrate, bilateral old rib fractures. -Continue IV Rocephin and azithromycin -M.tuberculosis PCR negative -Continue albuterol neb every 6 hours and prn -Mucinex -Symptoms much improved, O2 sat stable on room air, ready for discharge -Case management assisted with filling antibiotic prescriptions prior to discharge Nausea/vomiting/diarrhea -Patient with poor p.o. intake, continue following labs -Given IVF hydration, as needed antiemetics -C. difficile negative -Symptoms resolved Tobacco abuse/alcohol abuse -Patient continues to smoke half a pack of cigarettes daily and reports she also continues to drink beer daily. -Tobacco and alcohol cessation encouraged -WA DVT prophylaxis-subcu heparin Discharge Planning: Discharge patient to home Condition on discharge: Stable Regular Diet as tolerated Ad Lesley activity Rx written: Ceftin 500mg po bid, Azithro 500mg daily, Albuterol inhaler prn Follow-up with primary care physician within 1 week
[2018-04-24] MEDS: Heparin - SQ 10,000 UNITS/ML Vial SQ SCH (14:41)
[2018-04-24] MEDS ORDERED: Magnesium Oxide 400 MG Tablet PO ONE (15:00)
[2018-04-24 15:40] VITALS: PULSE 85; RESP 14
[2018-04-24 16:28] LABS: Hemoglobin A1c 4.5 % (4.3-6.0)
== END 2018-04-24 17:45 | disposition home or self-care (01) ==
LOC: NEPHCDU 14:07 → NEDA 14:07 → NEPD 14:07 → NEPHCDU 04-23 00:49
PROVIDERS: ADMIT Hospitalist; ATTEND Hospitalist
DX: Z88.5 Allergy status to narcotic agent; Z82.49 Family history of ischemic heart disease and other diseases of the circulatory system; R19.7 Diarrhea, unspecified; J45.909 Unspecified asthma, uncomplicated; R07.81 Pleurodynia; R11.2 Nausea with vomiting, unspecified; F10.10 Alcohol abuse, uncomplicated; R60.9 Edema, unspecified; F17.210 Nicotine dependence, cigarettes, uncomplicated; J18.9 Pneumonia, unspecified organism